=== PATIENT | female | born 1985 | race Caucasian/White ===

== ENCOUNTER 2020-10-04 11:15 | Outpatient (REF) | payer OTHER, SELFPAY ==
[2020-10-05 09:20] LABS: CT PCR NOT DETECTED (Not Detect.); NG PCR NOT DETECTED (Not Detect.)
== END 2020-10-04 11:16 | disposition home or self-care (01) ==
LOC: HO.LAB 11:15
PROVIDERS: PCP Physician Assistant; Visit Provider Obstetrics & Gynecology
DX: N91.2 Amenorrhea, unspecified (principal)
CPT/HCPCS: 81025; 87491; 87591; 99212

== ENCOUNTER 2020-10-16 12:09 | Outpatient (REF) | payer OTHER, SELFPAY ==
[2020-10-16 15:22] LABS: HCG Quantitative < 2 mIU/mL
[2020-10-17 06:37] LABS: Prolactin 5.9 ng/mL
== END 2020-10-16 12:10 | disposition home or self-care (01) ==
LOC: HO.LAB 12:09
PROVIDERS: PCP Physician Assistant; Visit Provider Obstetrics & Gynecology
DX: N91.2 Amenorrhea, unspecified (principal)
CPT/HCPCS: 36415; 84146; 84443; 84702; Q3014

== ENCOUNTER → 2020-10-28 15:20 | Outpatient (BNVA) | payer OTHER, SELFPAY | PROVIDERS: PCP Physician Assistant; Visit Provider Obstetrics & Gynecology | DX: N91.2 Amenorrhea, unspecified (principal) | CPT/HCPCS: Q3014 ==

== ENCOUNTER 2020-12-25 10:38 | Outpatient (REF) | payer OTHER, SELFPAY ==
[2020-12-25 11:58] LABS: Estimated Average Glucose 85 mg/dL; Hemoglobin A1c % 4.6 %
[2020-12-25 12:33] LABS: TSH reflex Free T4 2.51 uIU/mL (0.32-4.0)
[2020-12-25 12:50] LABS: Alanine Aminotransferase 22 U/L (0-31); Albumin Level 4.3 g/dL (3.5-5.0); Alkaline Phosphatase 80 U/L (39-117); Anion Gap 12 (12-20); Aspartate Amino Transferase 25 U/L (5-31); Bilirubin Total 0.8 mg/dL (0.0-1.0); Blood Urea Nitrogen 12 mg/dL (9-16); Calcium 9.5 mg/dL (8.4-10.2); Carbon Dioxide 26 mmol/L (22-29); Chloride 106 mmol/L (96-108); Cholesterol 209 mg/dL; Estimated Glomerular Filt Rate > 60; Glucose Fasting 90 mg/dL (60-99); HDL Cholesterol 36 mg/dL; LDL Cholesterol Calculated 141 mg/dl; Potassium 4.5 mmol/L (3.3-5.1); Sodium 139 mmol/L (135-145); Total Protein 7.4 g/dL (6.5-8.0); Triglycerides 162 mg/dL
== END 2020-12-25 10:39 | disposition home or self-care (01) ==
LOC: HO.LAB 10:38
PROVIDERS: PCP Physician Assistant; Visit Provider Physician Assistant
DX: Z13.1 Encounter for screening for diabetes mellitus (principal); Z13.220 Encounter for screening for lipoid disorders; E03.9 Hypothyroidism, unspecified
CPT/HCPCS: 36415; 80053; 80061; 83036; 84443

== ENCOUNTER 2021-03-26 14:29 | Outpatient (REF) | payer OTHER, SELFPAY ==
--- NOTE | ~2021-03-26 | XR_ITS ---
EXAMINATION: XR CERVICAL SPINE CLINICAL INFORMATION: Cervical radiculopathy. COMPARISON: None TECHNIQUE: AP, lateral, open-mouth, and swimmer's views of the cervical spine. FINDINGS: Reversal of the normal cervical lordosis, which may be positional or related to muscular spasm. No acute fracture or subluxation. No loss of vertebral body or intervertebral disc height. No lytic or blastic osseous lesion. Normal atlantoaxial alignment. Unremarkable prevertebral soft tissues. XR/XR cervical spine 3V IMPRESSION: Reversal of the normal cervical lordosis, which may be positional or related to muscular spasm.
== END 2021-03-26 14:30 | disposition home or self-care (01) ==
LOC: HO.XRAY 14:29
PROVIDERS: PCP Physician Assistant; Visit Provider Physician Assistant
DX: M54.12 Radiculopathy, cervical region (principal)
CPT/HCPCS: 72040

== ENCOUNTER 2021-04-09 09:45 | Outpatient (REF) | payer OTHER, SELFPAY ==
--- NOTE | 2021-04-09 09:48 | EMG_ITS ---
This is a 35-year-old previously healthy woman, who works at [employer] using her hands for several years, experienced left wrist pain and more recently pins and needles and tingling in all the fingers intermittently. She uses a brace. She is on no medications. PHYSICAL EXAMINATION: On examination, she is alert and oriented with normal intellectual functions. Cranial nerves II through XII are normal. Muscle tone and strength are normal in all 4 extremities. No Tinel or Phalen sign. IMPRESSION: Rule out carpal tunnel syndrome. Nerve conduction EMG study: Normal electrodiagnostic study of the left upper extremity except for borderline slowing in the ulnar nerve across the elbow suggestive of very early ulnar nerve entrapment. No evidence of carpal tunnel syndrome. Normal EMG of the left C5-T1 innervated muscles. MD CHELA Palacios/LIA / [id number]
== END 2021-04-09 09:46 | disposition home or self-care (01) ==
LOC: HO.NEURO 09:45
PROVIDERS: PCP Physician Assistant; Visit Provider Physician Assistant
DX: R20.2 Paresthesia of skin (principal)
CPT/HCPCS: 95885; 95910

== ENCOUNTER 2021-04-09 16:58 | Outpatient (REF) | payer OTHER, SELFPAY ==
--- NOTE | ~2021-04-09 | MR_ITS ---
EXAMINATION: MR CERVICAL SPINE WITHOUT CONTRAST CLINICAL INFORMATION: Cervical radiculopathy. Left arm pain and numbness. Left finger numbness and weakness. COMPARISON: Cervical spine radiographs dated 03/26/2021. TECHNIQUE: MRI of the cervical spine was obtained using routine sequences without contrast. FINDINGS: VERTEBRAL BODIES AND PARASPINAL SOFT TISSUES: Straightening of the normal cervical lordosis, which may be positional or related to muscle spasm. No acute fracture or subluxation. No loss of vertebral body height. Mild loss of intervertebral disc height with disc desiccation at T1-T2. No marrow edema to suggest acute osseous injury. Probable vertebral body hemangioma within T1. The visualized paraspinal soft tissues are unremarkable. No abnormal signal within the visualized cord. CERVICOMEDULLARY JUNCTION AND VISUALIZED POSTERIOR FOSSA: Unremarkable. SPINAL LEVELS: C2-C3: No significant disc bulge. Bilateral facet arthropathy with mild left neural foraminal stenosis. C3-C4: Shallow disc bulge, which partially effaces the ventral thecal sac. Bilateral facet arthropathy and uncinate spurring with moderate left and mild right neural foraminal stenosis. C4-C5: Shallow disc bulge with bilateral facet arthropathy and uncinate spurring causing moderate bilateral neural foraminal stenosis. C5-C6: Broad-based disc bulge with a shallow superimposed left paracentral disc protrusion, which nearly completely effaces the ventral thecal sac. Bilateral facet arthropathy with left-sided uncinate spurring causing moderate left neural foraminal stenosis. Right-sided perineural cyst measuring up to 0.6 cm. C6-C7: Shallow disc bulge with bilateral facet arthropathy and left-sided uncinate spurring causing moderate left and mild right neural foraminal stenosis. C7-T1: No significant disc bulge. Left-sided facet arthropathy and uncinate spurring causing [id number] left neural foraminal stenosis. T1-T2: Broad-based disc bulge with a left paracentral disc osteophyte complex which completely effaces the ventral thecal sac and has mass effect on the adjacent cord. No abnormal cord signal. Bilateral facet arthropathy and uncinate spurring with mild to moderate left neural foraminal stenosis. MR/MR cervical spine wo con IMPRESSION: 1. Degenerative disc disease at T1-T2 with a broad-based disc bulge and left paracentral disc osteophyte complex, which completely effaces the ventral thecal sac and has mass effect on the adjacent cord. No abnormal cord signal. Bilateral facet arthropathy and uncinate spurring with mild to moderate left neural foraminal stenosis. 2. Broad-based disc bulge at C5-C6 with a superimposed left paracentral disc protrusion, which completely effaces the ventral thecal sac. Bilateral facet arthropathy and left-sided uncinate spurring causing moderate left neural foraminal stenosis. Right-sided perineural cyst measuring 0.6 cm. 3. Additional multilevel disc bulges with bilateral facet arthropathy and uncinate spurring causing bilateral neural foraminal stenosis as above. 4. Straightening of the normal cervical lordosis, which may be positional or related to muscular spasm.
== END 2021-04-09 16:59 | disposition home or self-care (01) ==
LOC: HO.MRI 16:58
PROVIDERS: PCP Physician Assistant; Visit Provider Physician Assistant
DX: M54.12 Radiculopathy, cervical region (principal)
CPT/HCPCS: 72141

== ENCOUNTER → 2021-10-24 10:11 | Outpatient (BNVA) | payer OTHER, SELFPAY | PROVIDERS: PCP Physician Assistant; Visit Provider Nurse Practitioner Family | DX: M54.2 Cervicalgia (principal); M62.838 Other muscle spasm | CPT/HCPCS: 99202 ==

== ENCOUNTER 2021-10-28 10:00 | Outpatient (RCR) | payer OTHER, SELFPAY ==
--- NOTE | 2021-09-24 10:47 | MHC.PT.EP ---
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 She has had L-sided neck pain for about one year that comes and goes but recently worsened the lsat month. It is worse with sleeping, cervical rotation/movement, reaching with L shoulder, and lifting. MRI shows several L-sided disc bulges (see report). Examination shows decreased cervical AROM (especially L rotation), decreased L shoulder/elbow strength, decreased L shoulder AROM, increased pain and impaired postural awareness. S/s consistent with cervical derangement and postural syndrome. Recommend PT 2x/week for 5 weeks to address impairments, implement HEP, and optimize functional mobility. Frequency and Duration: The patient will be seen 2x/week for 5 weeks Short Term Goals: 3 week 1. Initiate HEP 2. Improve L cervical rotation to 60 to faciliate driving Group Counselor Goals: 5 weeks 1. Compliant with HEP and I with self management of sx 2. Pt will be able to sleep through the night with neck pain < 3/10 3. Pt will be able to lift > 10# with proper mechanics and pain < 3/10 Treatment Plan: Modalities to reduce pain, spasms and effusion. Manual therapy to restore motion and function. Therapeutic exercise to improve strength and flexibility. Neuromuscular re-education for posture and balance. Therapeutic activities to return to functional activities of daily living. Electronically signed by: Ai Lugo PT Please sign and return to therapist. Thank you for your referral.
--- NOTE | 2021-10-28 15:18 | MHC.PT.DC ---
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 Pt requesting d/c today as she is feeling much better. Electronically signed by: Ai Lugo PT Please sign and return to therapist. Thank you for your referral.
== END 2021-10-28 15:19 | disposition home or self-care (01) ==
LOC: HO.PT 10:00
PROVIDERS: PCP Physician Assistant; Visit Provider Nurse Practitioner Family
DX: M50.021 Cervical disc disorder at C4-C5 level with myelopathy (principal)
CPT/HCPCS: 97110; 97140; 97161

== ENCOUNTER 2022-09-02 11:37 | Outpatient (REF) | payer OTHER, SELFPAY ==
[2022-09-02 11:55] LABS: MANUAL DIFF FLAG NO
[2022-09-02 13:04] LABS: Basophils Absolute Auto 0.1 X10*3/uL (0.0-0.2); Basophils Percent Auto 0.6 % (0-2); Eosinophils Absolute Auto 0.3 X10*3/uL (0.0-0.4); Eosinophils Percent Auto 2.7 % (0-4); Hematocrit 43.1 % (37.0-47.0); Hemoglobin 14.4 g/dl (12.0-16.0); Imm Gran Abs Auto 0.04 X10*3/uL (0.00-0.03); Imm Gran Pct Auto 0.4 % (0.0-0.4); Lymphocytes Absolute Auto 2.8 X10*3/uL (1.2-4.9); Lymphocytes Percent Auto 27.4 % (20-40); Mean Corpuscular HGB Conc 33.4 g/dl (31.0-35.0); Mean Corpuscular Hemoglobin 30.6 pg (27.0-33.0); Mean Corpuscular Volume 91.7 fL (80.0-98.0); Mean Platelet Volume 10.3 fL (9.4-12.3); Monocytes Absolute Auto 0.6 X10*3/uL (0.1-1.2); Monocytes Percent Auto 5.6 % (2-11); Neutrophils Absolute Auto 6.5 x10*3/uL (2.0-8.3); Neutrophils Percent Auto 63.3 % (45-73); Platelet Count 341 X10*3/uL (160-400); Red Cell Distribution Width 12.4 % (11.0-16.0); White Blood Count 10.2 X10*3/uL (4.8-10.8)
[2022-09-02 13:45] LABS: Alanine Aminotransferase 19 U/L (0-31); Albumin Level 4.1 g/dL (3.5-5.0); Alkaline Phosphatase 75 U/L (39-117); Anion Gap 16 (12-20); Aspartate Amino Transferase 19 U/L (5-31); Bilirubin Total 0.4 mg/dL (0.0-1.0); Blood Urea Nitrogen 9 mg/dL (9-16); Calcium 9.2 mg/dL (8.4-10.2); Carbon Dioxide 25 mmol/L (22-29); Chloride 106 mmol/L (96-108); Cholesterol 196 mg/dL; Estimated Glomerular Filt Rate > 60; Glucose Fasting 81 mg/dL (60-99); HDL Cholesterol 36 mg/dL; LDL Cholesterol Calculated 127 mg/dl; Potassium 4.5 mmol/L (3.3-5.1); Sodium 142 mmol/L (135-145); Triglycerides 165 mg/dL
[2022-09-02 14:05] LABS: Folate 10.8 ng/mL (> or = 4.0); Vitamin B12 307 pg/mL (200-900); Vitamin D 25-OH Total 15.8 ng/mL (>30)
[2022-09-02 14:41] LABS: Free T4 (Free Thyroxine) 0.76 ng/dL (0.71-1.85)
== END 2022-09-02 11:38 | disposition home or self-care (01) ==
LOC: HO.LAB 11:37
PROVIDERS: PCP Physician Assistant; Visit Provider Nurse Practitioner Family
DX: Z00.00 Encounter for general adult medical examination without abnormal findings (principal)
CPT/HCPCS: 36415; 80053; 80061; 82306; 82607; 82746; 84439; 84443; 85025

== ENCOUNTER → 2022-12-28 17:20 | Outpatient (RCR) | payer OTHER, SELFPAY | END | disposition home or self-care (01) | LOC: HO.PTMS 12-25 10:18 | PROVIDERS: Absent Provider Psychiatry & Neurology Psychiatry; PCP Physician Assistant; Visit Provider Psychiatry & Neurology Psychiatry | DX: F32.A Depression, unspecified (principal) ==

== ENCOUNTER 2023-06-03 13:50 | Outpatient (AMB) | payer OTHER, SELFPAY ==
--- NOTE | 2023-06-03 14:11 | A.OFFVIS_ITS ---
Intake Vital Signs 06/03/23 14:12 Height 5 ft 7 in Weight 285 lb BMI 44.6 BP 110/76 Intake Visit Reasons: AUB Private Banker Required: No Information Interpreted: non-clinical & clinical Shearer Screen Measurer And Trimmer: Shearer Screen Measurer And Trimmer Present (Claudia Barrera CARMEN) Accompanied by: Self / Same As Patient Allergies No Known Allergies Allergy (Verified 06/03/23 14:19) bee sting Allergy (Severe, Uncoded 06/03/23 14:19) Anaphylaxis HPI HPI Comments History of Present Illness Details Presenting complaining of irregular menstrual cycles associated passage of blood clots and pelvic cramping. Last co testing was in 08/07 was negative. [facility] Medical History Left ovarian cyst Hypothyroid Surgical History History of removal of ovarian cyst Family History Mother Mental health disorder Sister Mental health disorder Social History Household Members: Spouse Housing: Apartment Alcohol intake: current Alcohol intake frequency: holidays/special occasions only Patient Tobacco Use Status: Never used Tobacco e-Cigarette/Vaping Use: Never Used Second Hand Smoke Exposure: No Substance Use Type: Marijuana service: No Current occupational status: employed Gender identity: Female Cognitive needs: No Hearing needs: No Vision needs: No Female Reproductive History Menstrual Age of Menarche: 16 Review of Systems Const All systems reviewed & are unremarkable except as noted in HPI and below Card Reports as per HPI Resp Reports as per HPI GI Reports as per HPI and Reports no additional complaints Reports as per HPI Physical Exam Vital Signs: Last Vital Signs BP 110/76 06/03/23 14:12 BMI result Body Mass Index 44.6 Const General: cooperative, healthy appearing and comfortable Chest Chest palpation & inspection: normal inspection of the chest and normal palpation of entire chest wall Breast/axilla inspection: normal inspection of the breasts and normal inspection of the axillae Breast/axilla palpation: normal palpation of the breasts, normal palpation of the axillae and no axillary lymphadenopathy Resp Effort & Inspection: normal respiratory effort Auscultation: clear to auscultation bilaterally Percussion: percussion normal Cardio Palpation: normal PMI Rate: regular rate Rhythm: regular rhythm Heart sounds: no murmurs and no rubs Peripheral pulses: Peripheral pulses 2+ throughout GI Inspection: Yes normal to inspection Palpation (GI): Soft to palpation, nontender, no guarding, not rigid and No hepatosplenomegaly present Percussion: Yes normal to percussion Auscultation: normal bowel sounds Rectal Exam - Female: deferred General: Yes bladder normal to palpation External Female Exam: No lesion Speculum Exam - Vagina: normal appearance of the vagina, normal palpation, normal vaginal discharge and not erythematous Speculum Exam - Cervix: normal appearance of the cervix and normal palpation Bimanual exam- vagina & uterus: normal bimanual exam, normal palpation, uterine size normal, bladder normal to palpation, consistency normal and normal palpation Bimanual Exam- Adnexa, other: normal adnexae, no masses and no tenderness Results AMB Test Urine AMB Test Urine Negative Last Edit by Claudia Barrera CMA on 14:38 Assessment & Plan Assessment & Plan (1) Abnormal uterine bleeding (AUB): Code(s): N93.9 - Abnormal uterine and vaginal bleeding, unspecified Plan: Will start patient on Prometrium 200 mg p.o. q.d. to be started today and then cyclically day 15 to 24 cyclically, Urine test done in the office was negative Co testing not indicated this year, GC and chlamydia taken CBC, TSH, prolactin, HCG, and pelvic ultrasound ordered. Discussed with the patient the different causes of abnormal bleeding including thyroid disorders, uterine and ovarian pathology, endometrial hyperplasia, carcinoma and other potential causes. Discussed with the patient the work up including CBC (to r/o anemia), TSH, pelvic Ultrasound, endometrial biopsy to r/o endometrial pathology. All questions answered and the patient verbalized understanding. Instructed the patient to schedule an appointment for an endometrial biopsy in 2 weeks. Orders: Orders US pelvic and transvaginal Today N93.9 - Abnormal uterine and vaginal bleeding, unspecified Complete Blood Count no Diff Today N93.9 - Abnormal uterine and vaginal bleeding, unspecified TSH reflex Free T4 Today N93.9 - Abnormal uterine and vaginal bleeding, unspecified Prolactin Today N93.9 - Abnormal uterine and vaginal bleeding, unspecified HCG Quantitative Today N93.9 - Abnormal uterine and vaginal bleeding, unsp ecified CT NG by PCR Today N93.9 - Abnormal uterine and vaginal bleeding, unspecified AMB HCG Urine Test Today N93.9 - Abnormal uterine and vaginal bleeding, unspecified Medications: New progesterone micronized (Prometrium) Take the pill 1 tablet a day to be started today for 10 days than cyclically every month from day 15-24 day 1 being the 1st day of next menstrual cycle 200 mg PO BEDTIME 10 days 30 caps 0RF Coding Level of Care Code Est Pt Level 3 (93052) Diagnoses Abnormal uterine bleeding (AUB) N93.9
[2023-06-03 14:12] VITALS: BP 110/76; BMI 44.6
== END 2023-06-03 14:48 | disposition home or self-care (01) ==
PROVIDERS: PCP Physician Assistant; Visit Provider Obstetrics & Gynecology
DX: N93.9 Abnormal uterine and vaginal bleeding, unspecified (principal)
CPT/HCPCS: 99213

== ENCOUNTER 2023-06-03 13:50 | Outpatient (REF) | payer OTHER, SELFPAY ==
[2023-06-03 15:27] LABS: Mean Corpuscular HGB Conc 34.3 g/dl (31.0-35.0); Mean Corpuscular Hemoglobin 30.4 pg (27.0-33.0); Mean Corpuscular Volume 88.6 fL (80.0-98.0); Mean Platelet Volume 10.2 fL (9.4-12.3); Platelet Count 341 X10*3/uL (160-400); Red Blood Count 3.95 X10*6/uL (4.20-5.50); Red Cell Distribution Width 12.4 % (11.0-16.0); White Blood Count 9.6 X10*3/uL (4.8-10.8)
[2023-06-03 16:51] LABS: HCG Quantitative < 2 mIU/mL; TSH reflex Free T4 4.29 uIU/mL (0.32-4.0)
[2023-06-03 17:22] LABS: Free T4 (Free Thyroxine) 0.84 ng/dL (0.71-1.85)
[2023-06-03 17:49] LABS: CT PCR NOT DETECTED (Not Detect.); NG PCR NOT DETECTED (Not Detect.)
[2023-06-04 10:04] LABS: Prolactin 6.7 ng/mL
== END 2023-06-03 13:51 | disposition home or self-care (01) ==
LOC: HO.LAB 13:50
PROVIDERS: PCP Physician Assistant; Visit Provider Obstetrics & Gynecology
DX: N93.9 Abnormal uterine and vaginal bleeding, unspecified (principal)
CPT/HCPCS: 0353U; 36415; 81025; 84146; 84439; 84443; 84702; 85027; 99212

== ENCOUNTER 2023-07-07 11:07 | Outpatient (REF) | payer OTHER, SELFPAY ==
--- NOTE | ~2023-07-07 | US_ITS ---
EXAMINATION: US PELVIS AND TRANSVAGINAL CLINICAL INFORMATION: Abnormal bleeding, last menstrual period June 14, 2023. Left oophorectomy. COMPARISON: Pelvic ultrasound of 08/16/2019. TECHNIQUE: Ultrasound of the pelvis is performed using both transabdominal and transvaginal transducers along with Doppler. Transvaginal imaging is performed due to inadequate visualization transabdominally. FINDINGS: Uterus: The uterus is heterogeneous and measures 9.4 x 4.7 x 5.0 cm. No discrete fibroids. The double wall endometrial thickness is 7 mm. Right ovary measures 3.7 x 2.9 x 3.0 cm, volume 16.9 mL. Right ovarian 3.8 x 3.2 x 3.0 cm simple cyst. Left ovary is surgically absent. Small amount of free fluid in the pelvis. US/US pelvic and transvaginal IMPRESSION: 1. Heterogeneous uterus. No discrete fibroids. 2. Endometrial thickness is 7 mm. 3. Right ovarian 3.8 cm simple cyst. 4. Left ovary surgically absent. 5. Small amount of free fluid in the pelvis. 6. Recommend follow-up ultrasound in 6-8 weeks.
== END 2023-07-07 11:08 | disposition home or self-care (01) ==
LOC: HO.US 11:07
PROVIDERS: PCP Physician Assistant; Visit Provider Obstetrics & Gynecology
DX: N93.9 Abnormal uterine and vaginal bleeding, unspecified (principal)
CPT/HCPCS: 76830; 76856

== ENCOUNTER 2023-08-04 10:40 | Outpatient (REF) | payer OTHER, SELFPAY | END 2023-08-04 10:41 | disposition home or self-care (01) | LOC: HO.LNP 10:40 | PROVIDERS: PCP Physician Assistant; Visit Provider Obstetrics & Gynecology | DX: N93.9 Abnormal uterine and vaginal bleeding, unspecified (principal); Z32.02 Encounter for pregnancy test, result negative | CPT/HCPCS: 58100; 81025; 88305 ==

== ENCOUNTER 2023-08-04 10:40 | Outpatient (AMB) | payer OTHER, SELFPAY ==
--- NOTE | 2023-08-04 11:23 | A.OFFVIS_ITS ---
Intake Vital Signs 08/04/23 11:32 Height 5 ft 1 in Weight 284 lb 6.341 oz BMI 53.7 BP 118/72 Intake Visit Reasons: Ultrasound Follow up Sugar Mixer Required: No Information Interpreted: non-clinical & clinical Inseam Trimming Machine Operator: Inseam Trimming Machine Operator Present (Claudia MORALES) Accompanied by: Spouse Allergies No Known Allergies Allergy (Verified 08/04/23 11:33) bee sting Allergy (Severe, Uncoded 08/04/23 11:33) Anaphylaxis Is last menstrual period known: Yes Last menstrual period: 07/08/23 HPI HPI Comments History of Present Illness Details Presenting for EMB PFSH Medical History Left ovarian cyst Hypothyroid Surgical History History of removal of ovarian cyst Family History Mother Mental health disorder Sister Mental health disorder Social History Household Members: Spouse Housing: Apartment Alcohol intake: current Alcohol intake frequency: holidays/special occasions only Patient Tobacco Use Status: Never used Tobacco e-Cigarette/Vaping Use: Never Used Second Hand Smoke Exposure: No Substance Use Type: Marijuana service: No Current occupational status: employed Gender identity: Female Cognitive needs: No Hearing needs: No Vision needs: No Female Reproductive History Menstrual Age of Menarche: 16 Date of last menstrual period: 07/08/23 Office Procedures Endometrial Biopsy Details: The patient was counseled regarding the indication and benefits of endometrial sampling to rule out endometrial pathology including not limited to endometrial hyperplasia or endometrial cancer and others; The alternatives (Either do nothing vs. hysteroscopy D&C) & the risks were discussed with the patient including but not limited: pain, uterine perforation, bleeding, infection, possible injury to bladder, bowel, ureter, possible need for blood transfusion with all its possible risks. The patient verbalized understanding all questions answered and signed consent. Urine test done in the office was negative The patient was placed into the dorsal lithotomy position; a speculum was inserted in the vagina. Using aseptic technique for the procedure, the cervix was cleansed with Betadine. The anterior lip of the cervix was grasped with a single tooth tenaculum. The uterus was sounded to 9 cm with a 4 mm Pipelle was used. Tissues samples were obtained and placed in formalin, in a patient labeled container and sent to the pathology department. At the end of the procedure, there was minimal bleeding noted The patient tolerated the procedure well and was discharged in good condition with the following instructions: Nothing in the vagina until the bleeding stops. No sex until the bleeding stops, to call if any of the following occurs: fever (>100.4), flu-like symptoms, abdominal pain, heavy bleeding, four smelling vagi nal discharge. The patient was instructed to schedule a Follow up appointment in 2 weeks to discuss pathology results of the biopsy and treatment options. This note was generated with a voice recognition program. Some errors may have been overlooked during the review of this note. Sometimes these errors may affect the content or meaning of a given sentence. [id number] Biopsy Assessment & Plan Assessment & Plan (1) Abnormal uterine bleeding (AUB): Code(s): N93.9 - Abnormal uterine and vaginal bleeding, unspecified Plan: EMB done, see procedure note Orders: Orders AMB Endometrial Biopsy Today N93.9 - Abnormal uterine and vaginal bleeding, unspecified Coding Level of Care Code Procedure Only Diagnoses Abnormal uterine bleeding (AUB) N93.9 CPT Codes Endometrial Biopsy - CPT: 79760-[id number] Biopsy ([id number])
[2023-08-04 11:32] VITALS: BP 118/72; BMI 53.7
== END 2023-08-04 11:58 | disposition home or self-care (01) ==
PROVIDERS: PCP Physician Assistant; Visit Provider Obstetrics & Gynecology
DX: N93.9 Abnormal uterine and vaginal bleeding, unspecified (principal); Z32.02 Encounter for pregnancy test, result negative
CPT/HCPCS: 58100

== ENCOUNTER 2023-09-15 08:59 | Outpatient (AMB) | payer OTHER, SELFPAY ==
--- NOTE | 2023-09-15 09:04 | MHC.OFFVIS ---
Intake Vital Signs 09/15/23 09:07 Height 5 ft 7 in Weight 284 lb 6.341 oz BMI 44.5 BP 118/76 Intake Visit Reasons: EMB Results Electric Locomotive Crane Operator Required: No Information Interpreted: non-clinical & clinical Case Management Social Worker: Case Management Social Worker Present Accompanied by: Spouse Allergies No Known Allergies Allergy (Verified 09/15/23 09:07) bee sting Allergy (Severe, Uncoded 09/15/23 09:07) Anaphylaxis Is last menstrual period known: Yes Last menstrual period: 09/02/23 Post menopausal: No Patient : No Do you need a note to return to daycare/school/sports/work: Yes (for surgery on wednesday) HPI HPI Comments History of Present Illness Details The patient is presenting after endometrial biopsy. The patient has no complaints, no vaginal bleeding, no feverishness chills or abdominal pain. 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 executive secretary social welfare and endometrium, and fragments of benign endometrial polyps with stromal collapse and glandular breakdown and focal features suggesting chronic endometritis (likely due to polyp); no atypia or carcinoma PFSH Medical History Left ovarian cyst Hypothyroid Surgical History History of removal of ovarian cyst Family History Mother Mental health disorder Sister Mental health disorder Social History Household Members: Spouse Housing: Apartment Alcohol intake: current Alcohol intake frequency: holidays/special occasions only Patient Tobacco Use Status: Never used Tobacco e-Cigarette/Vaping Use: Never Used Second Hand Smoke Exposure: No Substance Use Type: Marijuana service: No Current occupational status: employed Gender identity: Female Cognitive needs: No Hearing needs: No Vision needs: No Female Reproductive History Menstrual Age of Menarche: 16 Date of last menstrual period: 09/02/23 Total pregnancies: 2 Full term: 2 Review of Systems Card Reports as per HPI and Reports no additional complaints Resp Reports as per HPI and Reports no additional complaints GI Reports as per HPI and Reports no additional complaints Reports as per HPI Physical Exam Vital Signs: Last Vital Signs BP 118/76 09/15/23 09:07 BMI result Body Mass Index 44.5 Const General: cooperative, healthy appearing and comfortable Chest Chest palpation & inspection: normal inspection of the chest and normal palpation of entire chest wall Breast/axilla inspection: normal inspection of the breasts and normal inspection of the axillae Breast/axilla palpation: normal palpation of the breasts, normal palpation of the axillae and no axillary lymphadenopathy Resp Effort & Inspection: normal respiratory effort Auscultation: clear to auscultation bilaterally Percussion: percussion normal Cardio Palpation: normal PMI Rate: regular rate Rhythm: regular rhythm Heart sounds: no murmurs and no rubs Peripheral pulses: Peripheral pulses 2+ throughout GI Inspection: Yes normal to inspection Palpation (GI): Soft to palpation, nontender, no guarding, not rigid and No hepatosplenomegaly present Percussion: Yes normal to percussion Auscultation: normal bowel sounds Rectal Exam - Female: deferred Assessment & Plan Assessment & Plan (1) Abnormal uterine bleeding (AUB): Comment: Endometrial polyp on EMB pathology Code(s): N93.9 - Abnormal uterine and vaginal bleeding, unspecified Plan: Discussed with the patient the results of the pathology showing fragments of benign endometrial polyp, recommended hysteroscopy D&C possible polypectomy/myomectomy. Discussed with the patient the procedure , all benefits and risks including but not limited to inability to complete the procedure , insufficient endometrial tissue for a complete evaluation of the endometrial cavity , bleeding, infection, possible need for blood transfusion with all its risk ( HIV,syphilis, Hepatitis, anaphylaxis shock, others..), injury to bladder, rectum, possible need for laparoscopy/laparotomy or hysterectomy. The patient verbalized understanding and signed the consent. Instructions given the patient to schedule a 2 week postoperative appointment Coding Level of Care Code Est Pt Level 3 (19351) Diagnoses Abnormal uterine bleeding (AUB) N93.9
[2023-09-15 09:07] VITALS: BP 118/76; BMI 44.5
== END 2023-09-15 09:31 | disposition home or self-care (01) ==
LOC: HO.HWS 09:00
PROVIDERS: PCP Physician Assistant; Visit Provider Obstetrics & Gynecology
DX: N93.9 Abnormal uterine and vaginal bleeding, unspecified (principal)
CPT/HCPCS: 99213

== ENCOUNTER → 2023-09-15 08:59 | Outpatient (BNVA) | payer OTHER, SELFPAY | PROVIDERS: PCP Physician Assistant; Visit Provider Obstetrics & Gynecology | DX: N93.9 Abnormal uterine and vaginal bleeding, unspecified (principal) | CPT/HCPCS: 99212 ==

== ENCOUNTER 2023-09-17 10:26 | Day surgery (SDC) | payer OTHER, SELFPAY ==
--- NOTE | 2023-09-16 09:01 | HO.ANESPROP2 ---
Documented by User: Carlee Anderson NP 09/16/23 09:01 HPI - Anesthesia Eval Consult details Narrative: 37yo F for D&C Hysteroscopy,possible myomectomy,possible polypectomy, PMFSH Active Problems Active Problems: All Active Problems (Updated 09/15/23 @ 09:17 by Ede Rivers MD) Abnormal uterine bleeding (AUB) (Acute) Low vitamin D level (Acute) Muscle spasms of neck (Acute) Cervicalgia (Acute) Anaphylactic reaction (Acute) Cervical disc disorder at C4-C5 level with myelopathy (Acute) LINUS (generalized anxiety disorder) (Acute) Cervical radiculopathy (Acute) Migraines (Acute) Left carpal tunnel syndrome (Acute) Left hand paresthesia (Acute) Annual physical exam (Acute) Lumbar spine pain (Acute) Screening for diabetes mellitus (DM) (Acute) Screening for hypercholesterolemia (Acute) Obese (Acute) Hypothyroidism (Acute) MDD (major depressive disorder), recurrent episode, moderate (Acute) Amenorrhea (Acute) Past Medical History Medical History (Updated 09/17/23 @ 10:54 by Jerri Emerson RN) Cervicalgia LINUS (generalized anxiety disorder) Hypothyroidism MDD (major depressive disorder), recurrent episode, moderate Left ovarian cyst Hypothyroid Family History Family History Mother Mental health disorder Sister Mental health disorder Surgical History Surgical History (Updated 09/17/23 @ 10:54 by Jerri Emerson RN) History of dental surgery History of removal of ovarian cyst Social History Social History Household Members: Spouse Housing: Apartment Alcohol intake: current Alcohol intake frequency: holidays/special occasions only Patient Tobacco Use Status: Former Tobacco user e-Cigarette/Vaping Use: Never Used Second Hand Smoke Exposure: No Substance Use Type: Marijuana service: No Current occupational status: employed Gender identity: Female Cognitive needs: No Hearing needs: No Vision needs: No Meds Allergies Allergy/AdvReac Type Severity Reaction Status Date / Time caffeine AdvReac Nausea and Verified 09/17/23 10:55 Vomiting bee sting Allergy Severe Anaphylaxis Uncoded 09/15/23 09:07 Assessment and Plan Assessment Anesthesia Assessment: Chart Reviewed Documented by User: Angel Guy MD 09/17/23 12:35 PMFSH Past Medical History Medical History (Updated 09/17/23 @ 10:54 by Jerri Emerson RN) Cervicalgia LINUS (generalized anxiety disorder) Hypothyroidism MDD (major depressive disorder), recurrent episode, moderate Left ovarian cyst Hypothyroid Patient : No Family History Family History Mother Mental health disorder Sister Mental health disorder Family history of problems with anesthesia: No Surgical History Surgical History (Updated 09/17/23 @ 10:54 by Jerri Emerson RN) History of dental surgery History of removal of ovarian cyst History of Problems with Anesthesia: Yes (PONV) Social History Social History Household Members: Spouse Housing: Apartment Alcohol intake: current Alcohol intake frequency: holidays/special occasions only Patient Tobacco Use Status: Former Tobacco user e-Cigarette/Vaping Use: Never Used Second Hand Smoke Exposure: No Substance Use Type: Marijuana service: No Current occupational status: employed Gender identity: Female Cognitive needs: No Hearing needs: No Vision needs: No Meds Allergies Allergy/AdvReac Type Severity Reaction Status Date / Time caffeine AdvReac Nausea and Verified 09/17/23 10:55 Vomiting bee sting Allergy Severe Anaphylaxis Uncoded 09/15/23 09:07 Exam Airway Mallampati Class: II TM Dist: <=3cm Neck ROM: Full Heart: ok Lungs: ok Assessment and Plan Assessment Anesthesia Assessment: Anesthesia Plan Discussed Final Anesthetic Review Family History of Problems with Anesthesia: No History of Problems with Anesthesia: Yes (PONV) NPO: Yes ASA Class: III Final Preanesthetic Review: No Changes in Pt Med Stat, Meds/Allgs Chart Reviewed, Consent Obtained/Reviewed and Anes Risks/Benef Reviewed Patient Risk: Intermediate Procedure Risk: Low Anesthetic Plan Anesthetic Plan: GA and Agree w/ Assess. and Plan Disposition: Standard PACU
[2023-09-17] VITALS (7 sets, daily range): BP systolic 108–128; BP diastolic 66–95; PULSE 60–78; RESP 14–20; TEMP 36.1–36.6; O2SAT 91–99; BMI 44.6
[2023-09-17 11:01] LABS: UPreg QC Valid YES; Urine Pregnancy NEGATIVE (NEGATIVE)
[2023-09-17] MEDS: Lactated Ringers 1,000 ML 100 ML IVCONT (11:20)
--- NOTE | 2023-09-17 12:04 | MHC.SHP ---
Pre-Procedural Eval Section A - 24 Hr Update-Section A only Date of Service: 09/17/23 The patient is an INPATIENT: No Changes since office visit: No Cold of Flu in the past 2 weeks, No New Medical Problems, No Changes in Medication and No Patient answered all questions The patient has been examined within 24 hours of the surgical procedure. The History & Physical has been completed within 30 days and I have reviewed it.: Yes Section B - Complete if H&P > 30 days Chief Complaint: Abnormal uterine and vaginal bleeding, Allergies: Allergies Allergy/AdvReac Type Severity Reaction Status Date / Time caffeine AdvReac Nausea and Verified 09/17/23 10:55 Vomiting bee sting Allergy Severe Anaphylaxis Uncoded 09/15/23 09:07 Plan Diagnosis/Plan: Unchanged I have reviewed the history and physical and performed a pertinent physical examination on my patient. No changes have occurred unless specified. Time Spent With Patient Time: Total time managing care of this patient today ____ minutes.
--- NOTE | 2023-09-17 13:05 | PM.OP ---
Brief Operative Note Date of Service: 09/17/23 Pre-op diagnosis: Abnormal uterine bleeding, polyp on EMB Post-op diagnosis: same (Normal endometrial cavity) Procedure: Hysteroscopy D&C Surgeon: Ede Rivers MD Anesthesia: GLMA Was an Production Cell Leader used for this Procedure?: No Estimated blood loss (mL): 0 Pathology: other (Endometrial Scrapping.) Condition: stable Disposition: PACU
--- NOTE | 2023-09-17 13:06 | W.PM.OPN ---
Operative Note Operative Note Date of Service: 09/17/23 Narrative: Preop Diagnosis: Abnormal uterine bleeding, polyp on EMB Operation: Diagnostic Hysteroscopy, Dilataion & Curettage Post Op Diagnosis: Normal endometrial and endocervical cavity, no evidence of pathology QBL: Minimal Anesthesia: GLMA Surgeon: Ede Rivers MD Production Machine Computer Operator: None Complication: None Pathology: Endometrial Scrapings Procedure: The patient was put in the dorsal lithotomy position, scrubbed, and draped in the usual manner. A sterile speculum was inserted in the patient's vagina. The anterior lip of the cervix was grasped with a single tooth tenaculum. The cervix was dilated up to 5 mm, then the scope was inserted in the patient's uterus. Inspection revealed normal endocervical & endometrial cavity with no evidence of pathology. The scope was taken out of the uterine cavity , then sharp curetting was carried on with no complications. At the end of the procedure, all instruments were taken out of the patient uterine and vaginal cavity. The single tooth tenaculum was removed and homeostasis was assured using pressure. The patient tolerated the procedure well and was transferred to the PACU in a stable condition.
== END 2023-09-17 14:44 | disposition home or self-care (01) ==
PROVIDERS: PCP Physician Assistant; Visit Provider Obstetrics & Gynecology
PROC: 0UDB8ZZ Extraction of Endometrium, Via Natural or Artificial Opening Endoscopic (ICD-10-PCS; CPT 58558; principal; 2023-09-17 13:30)
DX: N39.9 Disorder of urinary system, unspecified (principal); E03.9 Hypothyroidism, unspecified; F33.1 Major depressive disorder, recurrent, moderate; F41.1 Generalized anxiety disorder; Z98.890 Other specified postprocedural states; Z87.891 Personal history of nicotine dependence
CPT/HCPCS: 58558; 81025; 88305; J1885; J2405; J2704; J3010

== ENCOUNTER → 2023-09-17 10:26 | Outpatient (BNV) | payer OTHER, SELFPAY | PROVIDERS: PCP Physician Assistant; Visit Provider Obstetrics & Gynecology | DX: N93.9 Abnormal uterine and vaginal bleeding, unspecified (principal); N84.0 Polyp of corpus uteri | CPT/HCPCS: 58558 ==

== ENCOUNTER 2023-10-04 12:12 | Outpatient (AMB) | payer OTHER, SELFPAY ==
[2023-10-04 12:18] VITALS: BP 118/80; BMI 44.6
--- NOTE | 2023-10-04 12:18 | MHC.OFFVIS ---
Intake Vital Signs 10/04/23 12:18 Height 5 ft 7 in Weight 285 lb BMI 44.6 BP 118/80 Intake Visit Reasons: post op Allergies caffeine Adverse Reaction (Verified 09/17/23 10:55) Nausea and Vomiting bee sting Allergy (Severe, Uncoded 09/15/23 09:07) Anaphylaxis HPI HPI Comments History of Present Illness Details The patient is presenting post hysteroscopy D&C no complaints minimal vaginal bleeding no feverishness chills or abdominal pain. The pathology showed the following: Endometrium, curettage: Benign disordered proliferative endometrium and fragments of endometrial polyps with focal gland crowding, and metaplastic and reactive changes; no atypia or carcinoma (see comment). Comment: Follow-up recommended in 4-6 months [facility] Medical History Cervicalgia LINUS (generalized anxiety disorder) Hypothyroidism MDD (major depressive disorder), recurrent episode, moderate Left ovarian cyst Hypothyroid Surgical History History of dental surgery History of removal of ovarian cyst Family History Mother Mental health disorder Sister Mental health disorder Social History Household Members: Spouse Housing: Apartment Alcohol intake: current Alcohol intake frequency: holidays/special occasions only Patient Tobacco Use Status: Former Tobacco user e-Cigarette/Vaping Use: Never Used Second Hand Smoke Exposure: No Substance Use Type: Marijuana service: No Current occupational status: employed Gender identity: Female Cognitive needs: No Hearing needs: No Vision needs: No Female Reproductive History Menstrual Age of Menarche: 16 Review of Systems Const All systems reviewed & are unremarkable except as noted in HPI and below Reports as per HPI and Reports no additional complaints GI Reports no additional complaints Reports no additional complaints Physical Exam Vital Signs: Last Vital Signs BP 118/80 10/04/23 12:18 BMI result Body Mass Index 44.6 Assessment & Plan Assessment & Plan (1) Abnormal uterine bleeding (AUB): Comment: Focal crowding on D&C pathology Code(s): N93.9 - Abnormal uterine and vaginal bleeding, unspecified Plan: Discussed with the patient the pathology of endometrial biopsy showing focal crowding without evidence of atypia or malignancy. Discussed with the patient the following: -If untreated the risk of progression to endometrial hyperplasia or endometrial carcinoma, -Other options of treatment discussed with the patient include Progestin therapy: A- levonorgestrel (LNG)-releasing intrauterine device (IUD; LNG 52) Compliance with medical therapy and follow-up endometrial sampling is important. B-Progestin therapy includes intrauterine and oral progestins. While various oral progestin therapies are effective for this indication, the LNG 52 IUD (Mirena, Liletta) is the most effective first-line therapy , compared with oral progestins levonorgestrel IUD treatment is associated with higher regression rates. The patient decided to proceed with Mirena IUD, so a more detailed discussion was carried on including mechanism of action, risks (infection, uterine perforation, failure with ectopic , septic AB, ovarian cyst and pelvic pain, increased breast cancer risk and others) benefits (efficient contraceptive method, others), GC/CG were taken and the patient was asked to call day one of next cycle for IUD insertion, will schedule EMB in 4 months. Instructions given to patient to schedule EMB in 4 months. All questions answered, the patient verbalized understanding Coding Level of Care Code Est Pt Level 3 (25282) Diagnoses Abnormal uterine bleeding (AUB) N93.9
== END 2023-10-04 12:36 | disposition home or self-care (01) ==
LOC: HO.HWS 12:12
PROVIDERS: PCP Physician Assistant; Visit Provider Obstetrics & Gynecology
DX: N93.9 Abnormal uterine and vaginal bleeding, unspecified (principal)
CPT/HCPCS: 99213

== ENCOUNTER → 2023-10-04 12:12 | Outpatient (BNVA) | payer OTHER, SELFPAY | PROVIDERS: PCP Physician Assistant; Visit Provider Obstetrics & Gynecology | DX: N93.9 Abnormal uterine and vaginal bleeding, unspecified (principal) | CPT/HCPCS: 99212 ==

== ENCOUNTER 2023-10-14 13:52 | Outpatient (AMB) | payer OTHER, SELFPAY ==
[2023-10-14 14:02] VITALS: BP 122/72; BMI 44.5
--- NOTE | 2023-10-14 14:02 | MHC.OFFVIS ---
Intake Vital Signs 10/14/23 14:02 Height 5 ft 7 in Weight 284 lb 6.341 oz BMI 44.5 BP 122/72 Intake Visit Reasons: Mirena insertion Allergies caffeine Adverse Reaction (Verified 09/17/23 10:55) Nausea and Vomiting bee sting Allergy (Severe, Uncoded 09/15/23 09:07) Anaphylaxis HPI HPI Comments History of Present Illness Details Presenting for Mirena IUD insertion [facility] Medical History Cervicalgia LINUS (generalized anxiety disorder) Hypothyroidism MDD (major depressive disorder), recurrent episode, moderate Left ovarian cyst Hypothyroid Surgical History History of dental surgery History of removal of ovarian cyst Family History Mother Mental health disorder Sister Mental health disorder Social History Household Members: Spouse Housing: Apartment Alcohol intake: current Alcohol intake frequency: holidays/special occasions only Patient Tobacco Use Status: Former Tobacco user e-Cigarette/Vaping Use: Never Used Second Hand Smoke Exposure: No Substance Use Type: Marijuana service: No Current occupational status: employed 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[employer] Gender identity: Female Cognitive needs: No Hearing needs: No Vision needs: No Female Reproductive History Menstrual Age of Menarche: 16 Date of last menstrual period: 10/12/23 Review of Systems Const All systems reviewed & are unremarkable except as noted in HPI and below Reports as per HPI and Reports no additional complaints GI Reports no additional complaints Reports no additional complaints Physical Exam Vital Signs: Last Vital Signs BP 122/72 10/14/23 14:02 BMI result Body Mass Index 44.5 Office Procedures IUD Insert/Removal Details Details: The patient is presenting for Mirena IUD insertion Urine test was done in the office and was negative; All the contraindications were excluded. The following possible complications were discussed with the patient: Intrauterine , Ectopic , Sepsis, Pelvic Infection, Irregular Bleeding and Amenorrhea, Perforation, Expulsion, Ovarian Cysts, Breast Cancer, The following adverse effects were discussed with the patient: alteration of menstrual bleeding pattern, including: unscheduled uterine bleeding decreased uterine bleeding increased scheduled uterine bleeding female genital tract bleeding ,amenorrhea , genital discharge , vulvovaginitis , breast pain , benign ovarian cyst and associated complications , dysmenorrhea , Gastrointestinal disorders abdominal/pelvic pain, headache/migraine , back pain , acne , depression Alternative options were discussed with the patient including but not limited: control pills, patch, NuvaRing, Depo-medroxyprogesterone acetate, Nexplanon, copper IUD, sterilization, vasectomy, others The procedure was explained in detail to patient , at the end patient signed the informed consent obtained. A no touch technique was used throughout the procedure. A speculum was placed into vagina and cervix was cleaned with betadine). A tenaculum was placed. A plastic sound was advanced through the external and internal os until it reached the fundus of the uterus, the depth was 8 cm. The sound was then withdrawn. The IUD was loaded in a sterile manner and advanced into position. The string was visualized and cut to 3 cm. Tenaculum site hemostatic. All instruments removed from vagina. Patient tolerated the procedure well. NO complications were noted. Patient was instructed to call for fever over 100.4, significant pain unrelieved by Motrin, IUD expulsion, heavy bleeding, or abnormal discharge. In addition, the following clinical considerations were discussed with the patient to call for removal: A stroke or heart attack ,Very severe or migraine headaches ,Unexplained fever ,Yellowing of the skin or whites of the eyes, as these may be signs of serious liver problems , or suspected , Pelvic pain or pain during sex ,HIV positive seroconversion in herself or her partner , Possible exposure to sexually transmitted infections Unusual vaginal discharge or genital sores , severe vaginal bleeding or bleeding that lasts a long time, or if she misses a menstrual period, Inability to feel Mirena's threads Counseled the patient that the IUD does not protect against STI's, recommended use of condoms for the first 7 days post insertion and explained to the patient that condoms are recommended for patients at risk for sexually transmitted infections. In for the patient that Mirena IUD is FDA approved for 8 years for contraception for 5 years for the treatment of heavy menses Instructed the patient to schedule a Follow up appointment in 4 to 6 weeks following insertion. This note was generated with a voice recognition program. Some errors may have been overlooked during the review of this note. Sometimes these errors may affect the content or meaning of a given sentence. [id number] Insertion Procedure code (CPT) selection complete Office Meds Mirena 21 mcg/24 hours (8 yrs) 52 mg intrauterine device Performing Provider: Ede Rievrs MD Performing Location: [facility] Documented (not given) by: Ede Rivers MD on 10/14/23 14:13 Dose Route Admin Location Dispensed Lot Number Expiration Date NDC Season[employer] Ware[employer] 1 device intrauterine ea Assessment & Plan Assessment & Plan (1) Encounter for IUD insertion: Code(s): Z30.430 - Encounter for insertion of intrauterine contraceptive device Plan: Mirena IUD insert, see procedure note Orders: Orders AMB IUD Insertion/Removal - Practice Supplied Today N93.9 - Abnormal uterine and vaginal bleeding, unspecified Medications: New Mirena (levonorgestrel) 1 device intrauterine ONCE 1 ea 0RF IUD insertion NS N93.9 - Abnormal uterine and vaginal bleeding, unspecified Coding Level of Care Code Procedure Only Diagnoses Encounter for IUD insertion Z30.430 CPT Codes Details - CPT: 86667-HWA Insertion ([id number])
== END 2023-10-14 14:16 | disposition home or self-care (01) ==
PROVIDERS: PCP Physician Assistant; Visit Provider Obstetrics & Gynecology
DX: Z30.430 Encounter for insertion of intrauterine contraceptive device (principal); Z32.02 Encounter for pregnancy test, result negative; N93.9 Abnormal uterine and vaginal bleeding, unspecified
CPT/HCPCS: 58300

== ENCOUNTER → 2023-10-14 13:52 | Outpatient (BNVA) | payer OTHER, SELFPAY | PROVIDERS: PCP Physician Assistant; Visit Provider Obstetrics & Gynecology | DX: Z30.430 Encounter for insertion of intrauterine contraceptive device (principal); Z32.02 Encounter for pregnancy test, result negative | CPT/HCPCS: 58300; 81025; J7298 ==

== ENCOUNTER 2023-12-01 13:19 | Outpatient (AMB) | payer OTHER, SELFPAY ==
--- NOTE | 2023-12-01 13:22 | A.OFFVIS_ITS ---
Vital Signs 12/01/23 13:28 Height 5 ft 7 in Weight 284 lb 6.341 oz BMI 44.5 Intake Visit Reasons: 4-6 week iud check Loan Service Officer Required: No Information Interpreted: non-clinical & clinical Petroleum Engineering Professor: Petroleum Engineering Professor Present (Claudia MORALES) Accompanied by: Spouse Allergies caffeine Adverse Reaction (Verified 12/01/23 13:29) Nausea and Vomiting bee sting Allergy (Severe, Uncoded 12/01/23 13:29) Anaphylaxis Is last menstrual period known: No (mirena) HPI Comments Details: The patient is presenting for IUD check . The patient has no complaints [facility] Medical History Cervicalgia LINUS (generalized anxiety disorder) Hypothyroidism MDD (major depressive disorder), recurrent episode, moderate Left ovarian cyst Hypothyroid Surgical History History of dental surgery History of removal of ovarian cyst Family History Mother Mental health disorder Sister Mental health disorder Social History Household Members: Spouse Housing: Apartment Alcohol intake: current Alcohol intake frequency: holidays/special occasions only Patient Tobacco Use Status: Former Tobacco user e-Cigarette/Vaping Use: Never Used Second Hand Smoke Exposure: No Substance Use Type: Marijuana service: No Current occupational status: employed 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[employer] Gender identity: Female Cognitive needs: No Hearing needs: No Vision needs: No Female Reproductive History Menstrual Age of Menarche: 16 Review of Systems Const All systems reviewed & are unremarkable except as noted in HPI and below Physical Exam Vital Signs: BMI result Body Mass Index 44.5 General: Yes no CVA tenderness External Female Exam: normal external appearance and normal appearance of the urethra Speculum Exam - Vagina: normal appearance of the vagina, normal palpation, no lesions and no masses Speculum Exam - Cervix: normal appearance of the cervix, normal palpation, no lesions, no masses, nontender and Other cervical findings present (IUD string in place) Bimanual exam- vagina & uterus: normal bimanual exam, normal palpation, uterine size normal, normal palpation, uterine shape normal, No Cervical tenderness present and non-tender Bimanual Exam- Adnexa, other: normal adnexae Back/Spine/Pelvis Back: no CVA tenderness Assessment & Plan Assessment & Plan (1) IUD check up: Code(s): Z30.431 - Encounter for routine checking of intrauterine contraceptive device Category: Medical Plan: UPT done in the office was negative. Discussed with the patient the finding on physical exam, IUD string in place, the patient was reassured. Instructions given to patient to call in case of temperature above 100.4, severe cramping/pelvic pain, abnormal discharge or abnormal uterine bleeding or if she misses her menstrual cycle. Otherwise follow-up at the schedule EMB appointment. All questions answered, the patient verbalized understanding. Coding Level of Care Code Est Pt Level 3 (32830) Diagnoses IUD check up Z30.431
[2023-12-01 13:28] VITALS: BMI 44.5
== END 2023-12-01 15:29 | disposition home or self-care (01) ==
PROVIDERS: PCP Physician Assistant; Visit Provider Obstetrics & Gynecology
DX: Z32.02 Encounter for pregnancy test, result negative (principal); Z30.431 Encounter for routine checking of intrauterine contraceptive device
CPT/HCPCS: 99213

== ENCOUNTER → 2023-12-01 13:19 | Outpatient (BNVA) | payer OTHER, SELFPAY | PROVIDERS: PCP Physician Assistant; Visit Provider Obstetrics & Gynecology | DX: Z30.431 Encounter for routine checking of intrauterine contraceptive device (principal) | CPT/HCPCS: 81025; 99212 ==

== ENCOUNTER 2024-02-02 10:32 | Outpatient (AMB) | payer OTHER, SELFPAY ==
--- NOTE | 2024-02-02 10:59 | MHC.OFFVIS ---
Vital Signs 02/02/24 11:03 Height 5 ft 7 in Weight 284 lb 6.341 oz BMI 44.5 BP 120/76 Intake Visit Reasons: EMB Fur Feeder Required: No Information Interpreted: non-clinical & clinical Bone Char Kiln Tender: Bone Char Kiln Tender Present (Claudia MORALES) Accompanied by: Spouse Allergies caffeine Adverse Reaction (Verified 02/02/24 11:03) Nausea and Vomiting bee sting Allergy (Severe, Uncoded 02/02/24 11:03) Anaphylaxis Is last menstrual period known: No (mirena) HPI Comments Details: Presenting for a repeat EMB after IUD insertion since last EMB showed focal gland crowding in 10/09 [facility] Medical History Cervicalgia LINUS (generalized anxiety disorder) Hypothyroidism MDD (major depressive disorder), recurrent episode, moderate Left ovarian cyst Hypothyroid Surgical History History of dental surgery History of removal of ovarian cyst Family History Mother Mental health disorder Sister Mental health disorder Social History Household Members: Spouse Housing: Apartment Alcohol intake: current Alcohol intake frequency: holidays/special occasions only Patient Tobacco Use Status: Former Tobacco user e-Cigarette/Vaping Use: Never Used Second Hand Smoke Exposure: No Substance Use Type: Marijuana service: No Current occupational status: employed 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[employer] Gender identity: Female Cognitive needs: No Hearing needs: No Vision needs: No Female Reproductive History Menstrual Age of Menarche: 16 Review of Systems Const All systems reviewed & are unremarkable except as noted in HPI and below Reports as per HPI and Reports no additional complaints GI Reports no additional complaints Reports no additional complaints Physical Exam Vital Signs: Last Vital Signs BP 120/76 02/02/24 11:03 BMI result Body Mass Index 44.5 Office Procedures Endometrial Biopsy Details: The patient was counseled regarding the indication and benefits of endometrial sampling to rule out endometrial pathology including not limited to endometrial hyperplasia or endometrial cancer and others; The alternatives (Either do nothing vs. hysteroscopy D&C) & the risks were discussed with the patient including but not limited: pain, uterine perforation, bleeding, infection, possible injury to bladder, bowel, ureter, possible need for blood transfusion with all its possible risks. The patient verbalized understanding all questions answered and signed consent. Urine test done in the office was negative The patient was placed into the dorsal lithotomy position; a speculum was inserted in the vagina. Using aseptic technique for the procedure, the cervix was cleansed with Betadine. The anterior lip of the cervix was grasped with a single tooth tenaculum. The uterus was sounded to 7 cm with a 4 mm Pipelle was used. Tissues samples were obtained and placed in formalin, in a patient labeled container and sent to the pathology department. At the end of the procedure, there was minimal bleeding noted The patient tolerated the procedure well and was discharged in good condition with the following instructions: Nothing in the vagina until the bleeding stops. No sex until the bleeding stops, to call if any of the following occurs: fever (>100.4), flu-like symptoms, abdominal pain, heavy bleeding, four smelling vaginal discharge. The patient was instructed to schedule a Follow up appointment in 2 weeks to discuss pathology results of the biopsy and treatment options. This note was generated with a voice recognition program. Some errors may have been overlooked during the review of this note. Sometimes these errors may affect the content or meaning of a given sentence. [id number] Biopsy Results AMB Test Urine AMB Test Urine Negative Last Edit by Claudia Barrera CMA on 02/02/24 11:10 Results Reviewed Results Reviewed: Laboratory Last Values [facility]st Clinic Negative 02/02/24 11:09 Assessment & Plan Assessment & Plan (1) Abnormal uterine bleeding (AUB): Comment: Focal crowding on D&C pathology Code(s): N93.9 - Abnormal uterine and vaginal bleeding, unspecified Category: Medical Plan: EMB done, see procedure note Orders: Orders AMB HCG Urine Test Today Z32.02 - Encounter for test, result negative AMB Endometrial Biopsy Today N93.9 - Abnormal uterine and vaginal bleeding, unspecified Coding Level of Care Code Procedure Only Diagnoses Abnormal uterine bleeding (AUB) N93.9 CPT Codes Endometrial Biopsy - CPT: 15670-Wcjmyftmymx Biopsy ([id number])
[2024-02-02 11:03] VITALS: BP 120/76; BMI 44.5
== END 2024-02-02 13:32 | disposition home or self-care (01) ==
LOC: HO.HWS 10:32
PROVIDERS: PCP Physician Assistant; Visit Provider Obstetrics & Gynecology
DX: N93.9 Abnormal uterine and vaginal bleeding, unspecified (principal); Z32.02 Encounter for pregnancy test, result negative
CPT/HCPCS: 58100

== ENCOUNTER 2024-02-02 10:32 | Outpatient (REF) | payer OTHER, SELFPAY | END 2024-02-02 10:33 | disposition home or self-care (01) | LOC: HO.LNP 10:32 | PROVIDERS: PCP Physician Assistant; Visit Provider Obstetrics & Gynecology | DX: Z32.02 Encounter for pregnancy test, result negative (principal); N93.9 Abnormal uterine and vaginal bleeding, unspecified | CPT/HCPCS: 58100; 81025; 88305 ==

== ENCOUNTER 2024-02-09 12:15 | Outpatient (AMB) | payer OTHER, SELFPAY ==
[2024-02-09 12:21] VITALS: BMI 44.5
--- NOTE | 2024-02-09 12:21 | A.OFFVIS_ITS ---
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 The patient has no complaints, no vaginal bleeding, no feverishness chills or abdominal pain. The endometrial biopsy pathology report showed the following: Benign dyssynchronous early to mid secretory endometrium with few fragments of stroma with decidual stromal change suggesting partial progestin response, and benign endocervical glandular mucosa; no atypia or carcinoma PFSH Medical History Cervicalgia LINUS (generalized anxiety disorder) Hypothyroidism MDD (major depressive disorder), recurrent episode, moderate Left ovarian cyst Hypothyroid Surgical History History of dental surgery History of removal of ovarian cyst Family History Mother Mental health disorder Sister Mental health disorder Social History Household Members: Spouse Housing: Apartment Alcohol intake: current Alcohol intake frequency: holidays/special occasions only Patient Tobacco Use Status: Former Tobacco user e-Cigarette/Vaping Use: Never Used Second Hand Smoke Exposure: No Substance Use Type: Marijuana service: No Current occupational status: employed 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9 - Abnormal uterine and vaginal bleeding, unspecified Category: Medical Plan: Discussed with the patient the results the pathology no evidence of focal crowding will repeat EMB in 3 months. Instructions given to patient to call in case of abnormal uterine bleeding or any other concerns and to schedule EMB appointment in 3 months. All questions answered, the patient verbalized understanding Coding Level of Care Code Est Pt Level 3 (13844) Diagnoses Abnormal uterine bleeding (AUB) N93.9
== END 2024-02-09 13:04 | disposition home or self-care (01) ==
PROVIDERS: PCP Physician Assistant; Visit Provider Obstetrics & Gynecology
DX: N93.9 Abnormal uterine and vaginal bleeding, unspecified (principal)
CPT/HCPCS: 99213

== ENCOUNTER → 2024-02-09 12:15 | Outpatient (BNVA) | payer OTHER, SELFPAY | PROVIDERS: PCP Physician Assistant; Visit Provider Obstetrics & Gynecology | DX: N93.9 Abnormal uterine and vaginal bleeding, unspecified (principal) | CPT/HCPCS: 99212 ==

== ENCOUNTER 2024-05-24 10:19 | Outpatient (REF) | payer OTHER, SELFPAY | END 2024-05-24 10:20 | disposition home or self-care (01) | LOC: HO.LNP 10:19 | PROVIDERS: PCP Physician Assistant; Visit Provider Obstetrics & Gynecology | DX: N93.9 Abnormal uterine and vaginal bleeding, unspecified (principal); Z32.02 Encounter for pregnancy test, result negative | CPT/HCPCS: 58100; 81025; 88305 ==

== ENCOUNTER 2024-05-24 10:19 | Outpatient (AMB) | payer OTHER, SELFPAY ==
[2024-05-24 10:21] VITALS: BP 128/70; BMI 44.5
--- NOTE | 2024-05-24 10:21 | A.OFFVIS_ITS ---
Vital Signs 05/24/24 10:21 Height 5 ft 7 in Weight 284 lb BMI 44.5 BP 128/70 Blood Pressure Location Rt brachial Position Sitting Intake Visit Reasons: EMB Allergies caffeine Adverse Reaction (Verified 05/24/24 10:21) Nausea and Vomiting bee sting Allergy (Severe, Uncoded 05/24/24 10:21) Anaphylaxis HPI Comments Details: Presenting for repeat EMB [facility] Medical History Cervicalgia LINUS (generalized anxiety disorder) Hypothyroidism MDD (major depressive disorder), recurrent episode, moderate Left ovarian cyst Hypothyroid Surgical History History of dental surgery History of removal of ovarian cyst Family History Mother Mental health disorder Sister Mental health disorder Social History Household Members: Spouse Housing: Apartment Alcohol intake: current Alcohol intake frequency: holidays/special occasions only Patient Tobacco Use Status: Former Tobacco user e-Cigarette/Vaping Use: Never Used Second Hand Smoke Exposure: No Substance Use Type: Marijuana service: No Current occupational status: employed 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[employer] Gender identity: Female Cognitive needs: No Hearing needs: No Vision needs: No Female Reproductive History Menstrual Age of Menarche: 16 Review of Systems Const All systems reviewed & are unremarkable except as noted in HPI and below Physical Exam Vital Signs: Last Vital Signs BP 128/70 05/24/24 10:21 BMI result Body Mass Index 44.5 General: Yes no CVA tenderness External Female Exam: normal external appearance and normal appearance of the urethra Speculum Exam - Vagina: normal appearance of the vagina, normal palpation, no lesions and no masses Speculum Exam - Cervix: normal appearance of the cervix, normal palpation, no lesions, no masses, nontender and Other cervical findings present (IUD string seen in place) Bimanual exam- vagina & uterus: normal bimanual exam, normal palpation, uterine size normal, normal palpation, uterine shape normal, No Cervical tenderness present and non-tender Bimanual Exam- Adnexa, other: normal adnexae Back/Spine/Pelvis Back: no CVA tenderness Office Procedures Endometrial Biopsy Details: The patient was counseled regarding the indication and benefits of endometrial sampling to rule out endometrial pathology including not limited to endometrial hyperplasia or endometrial cancer and others; The alternatives (Either do nothing vs. hysteroscopy D&C) & the risks were discussed with the patient including but not limited: pain, uterine perforation, bleeding, infection, possible injury to bladder, bowel, ureter, possible need for blood transfusion with all its possible risks. The patient verbalized understanding all questions answered and signed consent. Urine test done in the office was negative The patient was placed into the dorsal lithotomy position; a speculum was inserted in the vagina. Using aseptic technique for the procedure, the cervix was cleansed with Betadine. The anterior lip of the cervix was grasped with a single tooth tenaculum. The uterus was sounded to 7 cm with a 4 mm Pipelle was used. Tissues samples were obtained and placed in formalin, in a patient labeled container and sent to the pathology department. At the end of the procedure, there was minimal bleeding noted The patient tolerated the procedure well and was discharged in good condition with the following instructions: Nothing in the vagina until the bleeding stops. No sex until the bleeding stops, to call if any of the following occurs: fever (>100.4), flu-like symptoms, abdominal pain, heavy bleeding, four smelling vaginal discharge. The patient was instructed to schedule a Follow up appointment in 2 weeks to discuss pathology results of the biopsy and treatment options. This note was generated with a voice recognition program. Some errors may have been overlooked during the review of this note. Sometimes these errors may affect the content or meaning of a given sentence. 11716-Bsdowrshmei Biopsy Results AMB Test Urine AMB Test Urine Negative Last Edit by Johanne Merrill CMA on 05/24/24 10:29 Results Reviewed Results Reviewed: Laboratory Last Values Tst Clinic Negative 05/24/24 10:28 Assessment & Plan Assessment & Plan (1) Abnormal uterine bleeding (AUB): Comment: Focal crowding on D&C pathology in 10/09 Resolved on Mirena IUD in 02/08 Code(s): N93.9 - Abnormal uterine and vaginal bleeding, unspecified Category: Medical Plan: EMB done, see procedure note Orders: Orders AMB HCG Urine Test Today Z32.02 - Encounter for test, result negative AMB Endometrial Biopsy Today N93.9 - Abnormal uterine and vaginal bleeding, unspecified Surgical Today N93.9 - Abnormal uterine and vaginal bleeding, unspecified Coding Level of Care Code Procedure Only Diagnoses Abnormal uterine bleeding (AUB) N93.9 CPT Codes Endometrial Biopsy - CPT: 34000-Eewjloerknz Biopsy ([id number])
== END 2024-05-24 10:49 | disposition home or self-care (01) ==
LOC: HO.HWS 10:19
PROVIDERS: PCP Physician Assistant; Visit Provider Obstetrics & Gynecology
DX: N93.9 Abnormal uterine and vaginal bleeding, unspecified (principal); Z32.02 Encounter for pregnancy test, result negative
CPT/HCPCS: 58100

== ENCOUNTER 2024-06-21 08:48 | Outpatient (AMB) | payer OTHER, SELFPAY ==
--- NOTE | 2024-06-21 08:40 | A.OFFVIS_ITS ---
Intake Visit Reasons: EMB Results/please call at 8:00am Allergies caffeine Adverse Reaction (Verified 05/24/24 10:21) Nausea and Vomiting bee sting Allergy (Severe, Uncoded 05/24/24 10:21) Anaphylaxis HPI Comments Details: The patient is presenting after endometrial biopsy. The patient has no complaints, no vaginal bleeding, no feverishness chills or abdominal pain. The endometrial biopsy pathology report showed the following: Superficial fragments of inactive endometrium with patchy pseudodecidual change, consistent with exogenous progestin; no atypia identified [facility] Medical History Cervicalgia LINUS (generalized anxiety disorder) Hypothyroidism MDD (major depressive disorder), recurrent episode, moderate Left ovarian cyst Hypothyroid Surgical History History of dental surgery History of removal of ovarian cyst Family History Mother Mental health disorder Sister Mental health disorder Social History Household Members: Spouse Housing: Apartment Alcohol intake: current Alcohol intake frequency: holidays/special occasions only Patient Tobacco Use Status: Former Tobacco user e-Cigarette/Vaping Use: Never Used Second Hand Smoke Exposure: No Substance Use Type: Marijuana service: No Current occupational status: employed 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 [employer] Gender identity: Female Cognitive needs: No Hearing needs: No Vision needs: No Female Reproductive History Menstrual Age of Menarche: 16 Review of Systems Const All systems reviewed & are unremarkable except as noted in HPI and below Reports as per HPI and Reports no additional complaints GI Reports no additional complaints Reports no additional complaints Telehealth Telehealth Telehealth Platform: Telephone Location of provider rendering services: practice address Location of patient: address on file Patient Identification confirmed using: Name, : Yes Telehealth method: video Patient verbally consented to treatment: Yes Patient verbally consented to billing insurance company: Yes Patient informed of any privacy concerns related to visit: Yes Assessment & Plan Assessment & Plan (1) Abnormal uterine bleeding (AUB): Comment: Focal crowding on D&C pathology in 10/09 Resolved on Mirena IUD in 02/08 06/11 EMB inactive endometrium Code(s): N93.9 - Abnormal uterine and vaginal bleeding, unspecified Category: Medical Plan: Discussed with the patient the results of the pathology showing inactive endometrium. Instructions given to patient to schedule EMB appointment in 3 months to call in case of abnormal uterine bleeding occurs or any other concerns. All questions answered, the patient verbalized understanding. I spent a total of 20 minutes reviewing the chart, talking to the patient via video and documenting in the medical record. Coding Level of Care Code Tele Est Pt Level 3 (91491) Diagnoses Abnormal uterine bleeding (AUB) N93.9
== END 2024-06-21 09:28 | disposition home or self-care (01) ==
PROVIDERS: PCP Physician Assistant; Visit Provider Obstetrics & Gynecology
DX: N93.9 Abnormal uterine and vaginal bleeding, unspecified (principal)
CPT/HCPCS: 99213

== ENCOUNTER 2024-08-25 09:07 | Outpatient (REF) | payer OTHER, SELFPAY ==
--- OUTSIDE RECORDS SUMMARY | 2024-08-25 11:06 | XMS_ITS | Encounter Summary ---
[facility] Address [address] [place] [address] Care Team Providers Care Laboratory Asst Name Role Phone Sonal Cartwright MD Primary Care Provider [phone] Encounter Details Date Type Department Care Team (Latest Contact Info) Description 08/11/2024 9:30 AM EST - 08/11/2024 11:59 PM EST Hospital Encounter [facility] [address] Pain in left wrist Discharge Disposition: Home or Self Care Social History Tobacco Use Types Packs/Day Years Used Date Smoking Tobacco: Former Cigarettes Q uit: 07/19/2013 Smokeless Tobacco: Never Alcohol Use Standard Drinks/Week Comments Yes 0 (1 standard drink = 0.6 oz pur e alcohol) Sex and Gender Information Value Date Recorded Sex Assigned at Not on file Gender Identity Not on file Sexual Orientation Not on file Job Start Date Occupation Industry Not on file Not on file Not on file documented as of this encounter Discharge Disposition Disposition Code Departure Means Destination Home or Self Care documented in this encounter Plan of Treatment Not on file documented as of this encounter Procedures Procedure Name Priority Date/Time Associated Diagnosis Comments XR WRIST 3+ VIEWS LEFT Routine 08/11/2024 9:48 AM EST Pain in left wrist documented in this encounter Results * XR Wrist 3+ Views Left (08/11/2024 9:48 AM EST) Anatomical Region Laterality Modality Upper Extremities, Wrist Left Radiogr aphic Imaging 08/11/2024 1:06 PM EST Impressions 08/11/2024 1:07 PM EST No osseous or articular abnormalities of the left wrist. -------- FINAL REPORT -------- Dictated By: Cheng Au Dictated Date: 08/11/2024 13:06 ET Assigned Physician: Cheng Au Reviewed and Electronically Signed By: Cheng Au Signed Date: 08/11/2024 13:07 ET Workstation ID: [id number] Transcribed By: Self Edit Transcribed Date: 08/11/2024 13:06 ET Narrative 08/11/2024 1:07 PM EST HISTORY: pain TECHNIQUE: 3 radiographs of the left wrist COMPARISON: ??None. FINDINGS: There is normal mineralization with no fracture or malalignment. ??The visualized articulations are normal. ??The carpal bones demonstrate normal alignment. ??No significant soft tissue swelling is identified. Procedure Note Cheng Au MD - 08/11/2024 HISTORY: pain TECHNIQUE: 3 radiographs of the left wrist COMPARISON: None. FINDINGS: There is normal mineralization with no fracture or malalignment.The visualized articulations are normal. The carpal bones demonstratenormal alignment. No significant soft tissue swelling is identified. IMPRESSION: No osseous or articular abnormalities of the left wrist. -------- FINAL REPORT -------- Dictated By: Cheng Au Dictated Date: 08/11/2024 13:06 ET Assigned Physician: Cheng Au Reviewed and Electronically Signed By: Cheng Au Signed Date: 08/11/2024 13:07 ET Workstation ID: [id number] Transcribed By: Self Edit Transcribed Date: 08/11/2024 13:06 ET Rafiq LONDONO IMG XR PROCEDURES documented in this encounter Visit Diagnoses Diagnosis Pain in left wrist Pain in joint, forearm documented in this encounter Care Teams Laboratory Asst Relationship Specialty Start Date End Date Sonal Cartwright MD [address] [place] [id number] PCP - General 05/26/23 documented as of this encounter
--- OUTSIDE RECORDS SUMMARY | 2024-08-25 11:06 | XMS_ITS | Clinical Summary ---
Author Organization [facility] [place] 230 [facility] lding Address [address] [place] [address] Phone Care Team Providers Care Hand Presser Name Role Phone Sonal Cartwright MD Primary Care Provider [phone] Encounters Date Type Department Care Team Description 08/11/2024 9:30 AM EST - 08/11/2024 11:59 PM [facility] Hospital Encounter [facility] [address] [place] [id number] Pain in left wrist Discharge Disposition: Home or Self Care from Last 3 Months Surgical History Surgery Date Site/Laterality Comments OTHER SURGICAL HISTORY 2019 PROCEDURE: HISTORICAL ESSURE (BILATERAL OCCLUSION FALLOPIAN TUBES-PERMA) Medical History Medical History Date Comments Hypothyroidism DX:Hypothyroidis m Anxiety and depression DX:Anxiet y and depression H/O bee sting allergy DX:H/O bee sting allergy Cervical radiculopathy DX:Cervic al radiculopathy Ovarian cyst DX:Ovarian cyst; COMMENT: left Family History Medical History Relation Name Comments No Known Problems Brother No Known Problems Father No Known Problems Maternal Grandfather No Known Problems Maternal Grandmother No Known Problems Mother No Known Problems Paternal Grandfather No Known Problems Paternal Grandmother No Known Problems Sister Relation Name Status Comments Brother Father Maternal Grandfather Maternal Grandmother Mother Paternal Grandfather Paternal Grandmother Sister Social History Tobacco Use Types Packs/Day Years [...] file Not on file Not on file Obstetrics History Last Filed Vital Signs Vital Sign Reading Time Taken Comments Blood Pressure 104/70 03/03/2024 9:03 AM EDT Pulse 87 03/03/2024 9:03 AM EDT Temperature - - Respiratory Rate - - Oxygen Saturation - - Inhaled Oxygen Concentration - - Weight 130 kg (286 lb 6.4 oz) 03/03/2024 9:03 AM EDT Height 170.2 cm (5' 7 ) 03/03/2024 9:03 AM EDT Body Mass Index 44.86 03/03/2024 9:03 AM EDT Plan of Treatment Health Maintenance Due Date Last Done Comments DTaP,Tdap,and Td Vaccines (1 - Tdap) 2004 Hepatitis B Vaccines (1 of 3 - 19+ 3-dose series) 2004 Cervical Cancer Screening: P ap Smear 2006 Cholesterol Screening (Lipid Panel) 06/20/2022 Depression Screening 06/20/2022 HIV Screening 06/20/2022 Hepatitis C Screening 06/20/2022 Social Influencers of Health Screening 06/20/2022 COVID-19 Vaccine (2023-2 5 season) 2024 06/06/2021, 05/09/2021 Influenza Vaccine (#1) 2024 HIB Vaccines Aged Out No longer eligi ble based on patient's age to complete this topic HPV Vaccines Aged Out No longer eligi ble based on patient's age to complete this topic Hepatitis A Vaccines Aged Out No long er eligible based on patient's age to complete this topic IPV Vaccines Aged Out No longer eligi ble based on patient's age to complete this topic MMR Vaccines Aged Out No longer eligi ble based on patient's age to complete this topic Meningococcal ACWY Vaccine Aged Out N o longer eligible based on patient's age to complete this topic Pneumococcal Vaccine: Pediatrics (0 to 5 Years) and At-Risk Patients (6 to 64 Years) Aged Out No longer eligible b ased on patient's age to complete this topic RSV Immunization Patients Under 20 months Aged Out No longer eligible b ased on patient's age to complete this topic Varicella Vaccines Aged Out No longer eligible based on patient's age to complete this topic Procedures Procedure Name Priority Date/Time Associated Diagnosis Comments XR WRIST 3+ VIEWS LEFT Routine 08/11/2024 9:48 AM EST Pain in left wrist from Last 3 Months Results * XR Wrist 3+ Views Left [...] Signed Date: 08/11/2024 13:07 ET Workstation ID: [id number] Transcribed By: Self Edit Transcribed Date: 08/11/2024 [...] Signed Date: 08/11/2024 13:07 ET Workstation ID: [id number] Transcribed By: Self Edit Transcribed Date: 08/11/2024 13:06 ET Rafiq LONDONO IMAnayeli XR PROCEDURES from Last 3 Months Care Teams Hand Presser Relationship Specialty Start Date End Date Sonal Cartwright MD [address] [place] [id number] PCP - General 05/26/23
[2024-08-28 12:36] LABS: CT PCR DETECTED (Not Detect.); NG PCR NOT DETECTED (Not Detect.)
== END 2024-08-25 09:08 | disposition home or self-care (01) ==
LOC: HO.LNP 09:07
PROVIDERS: PCP Physician Assistant; Visit Provider Obstetrics & Gynecology
DX: Z30.433 Encounter for removal and reinsertion of intrauterine contraceptive device (principal); T83.32XA Displacement of intrauterine contraceptive device, initial encounter
CPT/HCPCS: 58300; 58301; 81025; 87491; 87591; J7298

== ENCOUNTER → 2024-08-25 09:07 | Outpatient (AMB) | payer OTHER, SELFPAY ==
--- NOTE | 2024-08-25 09:17 | A.OFFVIS_ITS ---
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 The patient with the emergency room few weeks ago CT scan showed malpositioned IUD. The patient is having some pelvic cramping no other associated symptoms. [facility] Medical History Cervicalgia LINUS (generalized anxiety disorder) Hypothyroidism MDD (major depressive disorder), recurrent episode, moderate Left ovarian cyst Hypothyroid Surgical History History of dental surgery History of removal of ovarian cyst Family History Mother Mental health disorder Sister Mental health disorder Social History Household Members: Spouse Housing: Apartment Alcohol intake: current Alcohol intake frequency: holidays/special occasions only Patient Tobacco Use Status: Former Tobacco user e-Cigarette/Vaping Use: Never Used Second Hand Smoke Exposure: No Substance Use Type: Marijuana service: No Current occupational status: employed 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 Gender identity: Female Cognitive needs: No Hearing needs: No Vision needs: No Female Reproductive History Menstrual Age of Menarche: 16 Review of Systems Const All systems reviewed & are unremarkable except as noted in HPI and below Physical Exam Vital Signs: Last Vital Signs BP 110/70 08/25/24 09:17 BMI result Body Mass Index 44.5 General: Yes no CVA tenderness External Female Exam: normal external appearance and normal appearance of the urethra Speculum Exam - Vagina: normal appearance of the vagina, normal palpation, no lesions and no masses Speculum Exam - Cervix: normal appearance of the cervix, normal palpation, no lesions, no masses, nontender and Other cervical findings present (IUD string in place) Bimanual exam- vagina & uterus: normal bimanual exam, normal palpation, uterine size normal, normal palpation, uterine shape normal, No Cervical tenderness present and non-tender Bimanual Exam- Adnexa, other: normal adnexae Back/Spine/Pelvis Back: no CVA tenderness Office Procedures IUD Insert/Removal Details Details: The patient is presenting for IUD removal and IUD reinsertion. Her last menstrual period was within the last 5 days, Urine test was done in the office and was negative; All the contraindications were excluded. The following possible complications were discussed with the patient: Intrauterine , Ectopic , Sepsis, Pelvic Infection, Irregular Bleeding and Amenorrhea, Perforation, Expulsion, Ovarian Cysts, Breast Cancer. The following adverse effects were discussed with the patient: alteration of menstrual bleeding pattern, including: unscheduled uterine bleeding decreased uterine bleeding increased scheduled uterine bleeding female genital tract bleeding ,amenorrhea , genital discharge , vulvovaginitis , breast pain , benign ovarian cyst and associated complications , dysmenorrhea , Gastrointestinal disorders abdominal/pelvic pain, headache/migraine , back pain , acne , depression Alternative options were discussed with the patient including but not limited: control pills, patch, NuvaRing, Depo-medroxyprogesterone acetate, Nexplanon, copper IUD, sterilization, vasectomy, others The procedure was explained in detail to patient , at the end patient signed the informed consent obtained. Alternative options were discussed with the patient The patient signed the consent and agreed with the plan; all questions answered. Urine test was done in the office and was negative Preop dx: Requesting IUD removal and Reinsertion Op: IUD removal and Mirena insertion Post op dx: same EBL= 10 cc Procedure: The patient was put in the dorsal lithotomy position a speculum was inserted in the vagina the IUD thread identified. Using a Maria Victoria clamp the thread was grasped and the IUD pulled out with no complications. A no touch technique was used throughout the procedure. A speculum was placed into vagina and cervix was cleaned with betadine). A tenaculum was placed. A plastic sound was advanced through the external and internal os until it reached the fundus of the uterus, the depth was 8 cm. The sound was then withdrawn. The IUD was loaded in a sterile manner and advanced into position. The string was visualized and cut to 3 cm. Tenaculum site hemostatic. All instruments removed from vagina. Patient tolerated the procedure well. NO complications were noted. Patient was instructed to call for fever over 100.4, significant pain unrelieved by Motrin, IUD expulsion, heavy bleeding, or abnormal discharge. In addition, the following clinical considerations were discussed with the patient to call for removal: A stroke or heart attack ,Very severe or migraine headaches ,Unexplained fever ,Yellowing of the skin or whites of the eyes, as these may be signs of serious liver problems , or suspected , Pelvic pain or pain during sex ,HIV positive seroconversion in herself or her partner , Possible exposure to sexually transmitted infections Unusual vaginal discharge or genital sores , severe vaginal bleeding or bleeding that lasts a long time, or if she misses a m enstrual period, Inability to feel Mirena's threads Counseled the patient that the IUD does not protect against STI's, recommended use of condoms for the first 7 days post insertion and explained to the patient that condoms are recommended for patients at risk for sexually transmitted infections. Follow up appointment made for 4 weeks following insertion. Date of removal in no more than five years for DUB treatment and 8 years for contraception from today?s date was d/w patient. This note was generated with a voice recognition program. Some errors may have been overlooked during the review of this note. Sometimes these errors may affect the content or meaning of a given sentence. 93762-SZV Insertion 54311-DJT Removal Procedure code (CPT) selection complete Office Meds Mirena 21 mcg/24 hr (up to 8 years) 52 mg intrauterine device Performing Provider: Ede Rivers MD Performing Location: [facility] Documented (not given) by: Ede Rivers MD on 08/25/24 09:38 Dose Route Admin Location Dispensed Lot Number Expiration Date [facility] [address] 1 device intrauterine ea Assessment & Plan Assessment & Plan (1) Malpositioned IUD: Code(s): T83.32XA - Displacement of intrauterine contraceptive device, initial encounter Category: Medical Plan: UPT done in the office was negative. GC/CT done. Mirena IUD taken out, see procedure note. Discussed with the patient the options of treatment including reinsertion of Mirena IUD versus p.o. progesterone. All pros and cons, risks and benefits of each were discussed with the patient, the patient decided to proceed with reinsertion of new Mirena IUD. Mirena IUD reinserted, see procedure note. Orders: Orders AMB IUD Insertion/Removal - Practice Supplied Today T83.32XA - Displacement of intrauterine contraceptive device, initial encounter Medications: New Mirena (levonorgestrel) 1 device intrauterine ONCE 1 ea 0RF IUD removal and reinsertion NS T83.32XA - Displacement of intrauterine contraceptive device, initial encounter Coding Level of Care Code Procedure Only Diagnoses Malpositioned IUD T83.32XA CPT Codes Details - CPT: 60147-POB Insertion ([id number]) Details - CPT: 14649-LWS Removal ([id number])
== END | disposition home or self-care (01) ==
PROVIDERS: PCP Physician Assistant; Visit Provider Obstetrics & Gynecology
CPT/HCPCS: 58300; 58301

== ENCOUNTER 2024-09-13 08:54 | Outpatient (AMB) | payer OTHER, SELFPAY ==
--- NOTE | 2024-09-13 08:56 | MHC.OFFVIS ---
Intake Visit Reasons: TEODORO Health And Safety Coordinator: Health And Safety Coordinator Present (Kiesha) Accompanied by: Self / Same As Patient Allergies caffeine Adverse Reaction (Verified 09/13/24 08:58) Nausea and Vomiting bee sting Allergy (Severe, Uncoded 08/25/24 09:18) Anaphylaxis HPI Comments Details: The patient is presenting for a test of cure. The patient took the antibiotics course; she informed her partner who was screened the results were negative and was treated too. The patient reports no intercourse last 2 years. [facility] Medical History Cervicalgia LINUS (generalized anxiety disorder) Hypothyroidism MDD (major depressive disorder), recurrent episode, moderate Left ovarian cyst Hypothyroid Surgical History History of dental surgery History of removal of ovarian cyst Family History Mother Mental health disorder Sister Mental health disorder Social History Household Members: Spouse Housing: Apartment Alcohol intake: current Alcohol intake frequency: holidays/special occasions only Patient Tobacco Use Status: Former Tobacco user e-Cigarette/Vaping Use: Never Used Second Hand Smoke Exposure: No Substance Use Type: Marijuana service: No Current occupational status: employed 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[employer] Gender identity: Female Cognitive needs: No Hearing needs: No Vision needs: No Female Reproductive History Menstrual Age of Menarche: 16 Review of Systems Const All systems reviewed & are unremarkable except as noted in HPI and below Physical Exam General: Yes no CVA tenderness External Female Exam: normal external appearance and normal appearance of the urethra Speculum Exam - Vagina: normal appearance of the vagina, normal palpation, no lesions and no masses Speculum Exam - Cervix: normal appearance of the cervix, normal palpation, no lesions, no masses, nontender and Other cervical findings present (IUD string seen) Bimanual exam- vagina & uterus: normal bimanual exam, normal palpation, uterine size normal, normal palpation, uterine shape normal, No Cervical tenderness present and non-tender Bimanual Exam- Adnexa, other: normal adnexae Back/Spine/Pelvis Back: no CVA tenderness Assessment & Plan Assessment & Plan (1) Chlamydia: Code(s): A74.9 - Chlamydial infection, unspecified Category: Medical Plan: GC/CT taken with BV panel. Will check the results and treat accordingly. All questions answered, the patient verbalized understanding Coding Level of Care Code Est Pt Level 3 (26788) Diagnoses Chlamydia A74.9
--- OUTSIDE RECORDS SUMMARY | 2024-09-13 09:42 | XMS_ITS | Clinical Summary ---
Author Organization [facility] 230 [facility] l[address] Address [address] [place] [address] Phone Care Team Providers Care Portfolio Management Marketing Name Role Phone Unavailable Primary Care Provider Unavailabl e Encounters Date Type Department Care Team Description 08/11/2024 9:30 AM EST - 08/11/2024 11:59 PM EST Hospital Encounter [facility] [address] [place] [address] Pain in left wrist Discharge Disposition: [...] drink = 0.6 oz pur e alcohol) Comments Unknown Sex and Gender Information Value Date Recorded Sex Assigned at Not on file Legal Sex Female 7:16 PM EST Gender Identity Not on file Sexual Orientation Not on file Obstetrics History Last Filed [...] patient's age to complete this topic Meningococcal B Vacine Aged Out No lo nger eligible based on patient's age to complete [...] Dictated Date: 08/11/2024 13:06 ET Assigned Physician: Cehng Au Reviewed and Electronically Signed By: Cheng Au Signed Date: 08/11/2024 13:07 ET Workstation ID: [id number] Transcribed By: Self Edit Transcribed Date: 08/11/2024 [...] Signed Date: 08/11/2024 13:07 ET Workstation ID: [id number] Transcribed By: Self Edit Transcribed Date: 08/11/2024 13:06 ET Rafiq LONDONO IMG XR PROCEDURES Final Result from Last 3 Months Insurance [facility] PLANS
== END 2024-09-13 09:38 | disposition home or self-care (01) ==
PROVIDERS: PCP Physician Assistant; Visit Provider Obstetrics & Gynecology
DX: A74.9 Chlamydial infection, unspecified (principal)
CPT/HCPCS: 99213

== ENCOUNTER 2024-09-13 08:54 | Outpatient (REF) | payer OTHER, SELFPAY ==
--- OUTSIDE RECORDS SUMMARY | 2024-09-13 11:02 | XMS_ITS | Clinical Summary ---
Author Organization [facility] 230 [facility] l[address] Address [address] [place] [address] Phone Care Team Providers Care Farmer Cash Grain Name Role Phone Unavailable Primary Care Provider Unavailabl e Encounters Date Type Department Care Team Description 08/11/2024 9:30 AM EST - 08/11/2024 11:59 PM EST Hospital Encounter [facility] [address] [place] [address] Pain in left wrist Discharge [...] Signed Date: 08/11/2024 13:07 ET Workstation ID: [id number] Transcribed By: Self Edit Transcribed Date: 08/11/2024 [...] Signed Date: 08/11/2024 13:07 ET Workstation ID: [id number] Transcribed By: Self Edit Transcribed Date: 08/11/2024 13:06 ET Rafiq LONDONO IMG XR PROCEDURES Final Result from Last 3 Months Insurance [facility] PLANS
[2024-09-13 22:01] LABS: Bacterial Vaginosis PCR POSITIVE (Negative); Candida Group PCR NOT DETECTED (Not Detect); Candida glab krusei PCR NOT DETECTED (Not Detect); Trichomonas vaginalis PCR NOT DETECTED (Not Detect)
[2024-09-13 23:52] LABS: CT PCR NOT DETECTED (Not Detect.); NG PCR NOT DETECTED (Not Detect.)
== END 2024-09-13 08:55 | disposition home or self-care (01) ==
LOC: HO.LNP 08:54
PROVIDERS: PCP Physician Assistant; Visit Provider Obstetrics & Gynecology
DX: Z09 Encounter for follow-up examination after completed treatment for conditions other than malignant neoplasm (principal); A74.9 Chlamydial infection, unspecified; Z79.2 Long term (current) use of antibiotics
CPT/HCPCS: 81515; 87491; 87591; 99212

== ENCOUNTER 2024-09-15 13:11 | Outpatient (REF) | payer OTHER, SELFPAY ==
--- OUTSIDE RECORDS SUMMARY | 2024-09-15 15:14 | XMS_ITS | Clinical Summary ---
Author Organization [facility] 230 [facility] lding Address [address] [place] [address] Phone Care Team Providers Care Shoe Puller Name Role Phone Unavailable Primary Care Provider Unavailabl e Encounters Date Type Department Care Team Description 08/11/2024 9:30 AM EST - 08/11/2024 11:59 PM EST [facility] [address] [place] [address] Pain in left wrist Discharge [...] Signed Date: 08/11/2024 13:07 ET Workstation ID: [id number] Transcribed By: Self Edit Transcribed Date: 08/11/2024 [...] Signed Date: 08/11/2024 13:07 ET Workstation ID: [id number] Transcribed By: Self Edit Transcribed Date: 08/11/2024 13:06 ET Rafiq LONDONO IMG XR PROCEDURES Final Result from Last [address] [place] [address] [address] [place] [address] PLANS
[2024-09-18 08:47] LABS: HBsAGNum1 0.42 S/CO (0.00-0.99); HIV AB/AG Nonreactive (Nonreactive); HIV Num 1 0.06 S/CO (0.00-0.99); Hepatitis B Surface Antigen Negative (Negative); ~HepC Num1 0.14 S/CO (0.00-0.79); ~Hepatitis C Antibody Nonreactive (Nonreactive)
[2024-09-18 09:21] LABS: Syphilis Screen Nonreactive (Nonreactive)
== END 2024-09-15 13:12 | disposition home or self-care (01) ==
LOC: HO.LAB 13:11
PROVIDERS: Visit Provider Obstetrics & Gynecology
DX: Z20.2 Contact with and (suspected) exposure to infections with a predominantly sexual mode of transmission (principal)
CPT/HCPCS: 36415; 86780; 86803; 87340; 87389

== ENCOUNTER 2024-11-15 10:31 | Outpatient (AMB) | payer OTHER, SELFPAY ==
[2024-11-15 10:39] VITALS: BMI 44.5
--- NOTE | 2024-11-15 10:39 | A.OFFVIS_ITS ---
Vital Signs 11/15/24 10:39 Height 5 ft 7 in Weight 284 lb BMI 44.5 Intake Visit Reasons: EMB Golf Cart Repairer Required: No Information Interpreted: non-clinical & clinical Sales Operations Associate: Sales Operations Associate Present (Claudia MORALES) Accompanied by: Self / Same As Patient Allergies caffeine Adverse Reaction (Verified 11/15/24 10:39) Nausea and Vomiting bee sting Allergy (Severe, Uncoded 11/15/24 10:39) Anaphylaxis Is last menstrual period known: No (mirena) HPI Comments Details: Presenting for repeat EMB with no complaint no vaginal bleeding or any other concerns. Focal crowding on D&C pathology in 10/09 Resolved on Mirena IUD in 02/08 06/11 EMB inactive endometrium 09/12 Mirena IUD malpositioned, replaced PFSH Medical History Cervicalgia LINUS (generalized anxiety disorder) Hypothyroidism MDD (major depressive disorder), recurrent episode, moderate Left ovarian cyst Hypothyroid Surgical History History of dental surgery History of removal of ovarian cyst Family History Mother Mental health disorder Sister Mental health disorder Social History Household Members: Spouse Housing: Apartment Alcohol intake: current Alcohol intake frequency: holidays/special occasions only Patient Tobacco Use Status: Former Tobacco user e-Cigarette/Vaping Use: Never Used Second Hand Smoke Exposure: No Substance Use Type: Marijuana service: No Current occupational status: employed 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 [employer] Gender identity: Female Cognitive needs: No Hearing needs: No Vision needs: No Female Reproductive History Menstrual Age of Menarche: 16 Review of Systems Const All systems reviewed & are unremarkable except as noted in HPI and below Reports as per HPI and Reports no additional complaints GI Reports no additional complaints Reports no additional complaints Physical Exam Vital Signs: BMI result Body Mass Index 44.5 Office Procedures Endometrial Biopsy Details: The patient was counseled regarding the indication and benefits of endometrial sampling to rule out endometrial pathology including not limited to endometrial hyperplasia or endometrial cancer and others; The alternatives (Either do nothing vs. hysteroscopy D&C) & the risks were discussed with the patient including but not limited: pain, uterine perforation, bleeding, infection, possible injury to bladder, bowel, ureter, possible need for blood transfusion with all its possible risks. The patient verbalized understanding all questions answered and signed consent. Urine test done in the office was negative The patient was placed into the dorsal lithotomy position; a speculum was inserted in the vagina. Using aseptic technique for the procedure, the cervix was cleansed with Betadine. The anterior lip of the cervix was grasped with a single tooth tenaculum. The uterus was sounded to 7 cm with a 4 mm Pipelle was used. Tissues samples were obtained and placed in formalin, in a patient labeled container and sent to the pathology department. At the end of the procedure, there was minimal bleeding noted The patient tolerated the procedure well and was discharged in good condition with the following instructions: Nothing in the vagina until the bleeding stops. No sex until the bleeding stops, to call if any of the following occurs: fever (>100.4), flu-like symptoms, abdominal pain, heavy bleeding, four smelling vaginal discharge. The patient was instructed to schedule a Follow up appointment in 2 weeks to discuss pathology results of the biopsy and treatment options. This note was generated with a voice recognition program. Some errors may have been overlooked during the review of this note. Sometimes these errors may affect the content or meaning of a given sentence. [address]3764-Slazoedybhi Biopsy Results AMB Test Urine AMB Test Urine Negative Last Edit by Claudia Barrera CMA on 10:44 Assessment & Plan Assessment & Plan (1) Abnormal uterine bleeding (AUB): Comment: Focal crowding on D&C pathology in 10/09 Resolved on Mirena IUD in 02/08 06/11 EMB inactive endometrium Code(s): N93.9 - Abnormal uterine and vaginal bleeding, unspecified Category: Medical Plan: EMB done, see procedure UPT done in the office was negative. Discussed with the patient the finding on physical exam, IUD string in place, the patient was reassured. Instructions given to patient to call in case of temperature above 100.4, severe cramping/pelvic pain, abnormal discharge or abnormal uterine bleeding or if she misses her menstrual cycle. Otherwise follow-up at her annual exam appointment. All questions answered, the patient verbalized understanding. Orders: Orders AMB HCG Urine Test Today Z32.02 - Encounter for test, result negative AMB Endometrial Biopsy Today N93.9 - Abnormal uterine and vaginal bleeding, unspecified Coding Level of Care Code Procedure Only Diagnoses Abnormal uterine bleeding (AUB) N93.9 CPT Codes Endometrial Biopsy - CPT: 66891-Czxlsvrbbtr Biopsy ([id number])
--- OUTSIDE RECORDS SUMMARY | 2024-11-15 11:53 | XMS_ITS | Clinical Summary ---
Author Organization [facility] 230 [facility] l[address] Address [address] [place] [address] Phone Care Team Providers Care Door Manager Name Role Phone Unavailable Primary Care Provider Unavailabl e Encounters Date Type Department Care Team Description 09/20/2024 12:15 PM EST - 09/20/2024 11:59 PM EST Hospital Encounter [facility] MRI [address] [place] [address] Pain in left wrist Discharge Disposition: Home [...] 5 season) 2024 06/06/2021, 05/09/2021 Influenza Vaccine (Season Ended) 2025 HIB Vaccines Aged Out No longer eligi [...] age to complete this topic Meningococcal B Vaccine Aged Out No l onger eligible based on patient's age to complete [...] Procedure Name Priority Date/Time Associated Diagnosis Comments MR WRIST WO CONTRAST LEFT Routine 09/20/2024 1:22 PM EST Pain in left wrist from Last 3 Months Results * MR Wrist wo Contrast Left (09/20/2024 1:22 PM EST) Anatomical Region Laterality Modality Upper Extremities, Wrist Left Magneti c Resonance 09/21/2024 1:17 PM EST Impressions 09/21/2024 1:48 PM EST No fracture or ligamentous injury. 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 extensor pollicis brevis tendinosis with longitudinal split tear. -------- FINAL REPORT -------- Dictated By: PAYTON SINGLETARY Dictated Date: 09/21/2024 13:17 ET Assigned Physician: PAYTON SINGLETARY Reviewed and Electronically Signed By: PAYTON SINGLETARY Signed Date: 09/21/2024 13:48 ET Workstation ID: [id number] Transcribed By: Self Edit Transcribed Date: 09/21/2024 13:17 ET Narrative 09/21/2024 1:48 PM EST PROCEDURE: Left wrist MRI INDICATION: Left wrist pain TECHNIQUE: Multiplanar, multisequence MRI of the left wrist Without contrast. COMPARISON: ??No priors available. FINDINGS: No fracture or suspicious marrow replacing lesion. ??Small degenerative subcortical cysts are seen throughout the carpus, most notable in the right atrium, capitate, and radial aspect of the lunate. No focal cartilage defects or significant joint effusion. Scapholunate and lunatotriquetral ligaments are intact. Triangular fibrocartilage complex is intact. ??No significant fluid in the distal radial ulnar joint. Extrinsic wrist ligaments are intact. Extensor carpi ulnaris and extensor pollicis brevis tendinosis. ??Longitudinal split tear of the extensor pollicis brevis around the radial styloid and distally. ??Flexor tendons are intact. Carpal tunnel is normal in morphology. ??Median and ulnar nerves are normal. No mass or periarticular fluid collection. ??Small fluid noted in the pisiform recess. Muscle bulk is normal.. Procedure Note Payton Singletary MD - 09/21/2024 PROCEDURE: Left wrist MRI INDICATION: Left wrist pain TECHNIQUE: Multiplanar, multisequence MRI of the left wrist Withoutcontrast. COMPARISON: No priors available. FINDINGS: No fracture or suspicious marrow replacing lesion. Small degenerativesubcortical cysts are seen throughout the carpus, most notable in theright atrium, capitate, and radial aspect of the lunate. No focal cartilage defects or significant joint effusion. Scapholunate and lunatotriquetral ligaments are intact. Triangular fibrocartilage complex is intact. No significant fluid in thedistal radial ulnar joint. Extrinsic wrist ligaments are intact. Extensor carpi ulnaris and extensor pollicis brevis tendinosis.Longitudinal split tear of the extensor pollicis brevis around the radialstyloid and distally. Flexor tendons are intact. Carpal tunnel is normal in morphology. Median and ulnar nerves arenormal. No mass or periarticular fluid collection. Small fluid noted in thepisiform recess. Muscle bulk is normal.. IMPRESSION: No fracture or ligamentous injury. 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 extensor pollicis brevis tendinosis with longitudinal split tear. -------- FINAL REPORT -------- Dictated By: PAYTON SINGLETARY Dictated Date: 09/21/2024 13:17 ET Assigned Physician: PAYTON SINGLETARY Reviewed and Electronically Signed By: PAYTON SINGLETARY Signed Date: 09/21/2024 13:48 ET Workstation ID: [id number] Transcribed By: Self Edit Transcribed Date: 09/21/2024 13:17 ET Rafiq LONDONO IMG MRI PROCEDURES Final Resul t from Last 3 Months Insurance [facility] PUBLIC PLANS
== END 2024-11-15 12:53 | disposition home or self-care (01) ==
LOC: HO.HWS 10:31
PROVIDERS: PCP Physician Assistant; Visit Provider Obstetrics & Gynecology
DX: N93.9 Abnormal uterine and vaginal bleeding, unspecified (principal); Z32.02 Encounter for pregnancy test, result negative
CPT/HCPCS: 58100

== ENCOUNTER 2024-11-15 10:31 | Outpatient (REF) | payer OTHER, SELFPAY ==
--- OUTSIDE RECORDS SUMMARY | 2024-11-15 12:33 | XMS_ITS | Clinical Summary ---
Author Organization [facility] 230 [facility] l[address] Address [address] [place] [address] Phone Care Team Providers Care Hogshead Cooper Name Role Phone Unavailable Primary Care Provider Unavailabl e Encounters Date Type Department Care Team Description 09/20/2024 12:15 PM EST - 09/20/2024 11:59 PM EST Hospital Encounter [facility] MRI [address] [place] [address] Pain in left wrist Discharge [...] Signed Date: 09/21/2024 13:48 ET Workstation ID: [id number] Transcribed By: Self Edit Transcribed Date: 09/21/2024 [...] Signed Date: 09/21/2024 13:48 ET Workstation ID: [id number] Transcribed By: Self Edit Transcribed Date: 09/21/2024 13:17 ET Rafiq LONDONO IMG MRI PROCEDURES Final Resul t from Last 3 Months Insurance [facility] PUBLIC PLANS
== END 2024-11-15 10:32 | disposition home or self-care (01) ==
LOC: HO.LNP 10:31
PROVIDERS: PCP Physician Assistant; Visit Provider Obstetrics & Gynecology
DX: N93.9 Abnormal uterine and vaginal bleeding, unspecified (principal); Z32.02 Encounter for pregnancy test, result negative
CPT/HCPCS: 58100; 81025; 88305

== ENCOUNTER → 2024-12-14 07:47 | Outpatient (BNVA) | payer OTHER, SELFPAY | PROVIDERS: PCP Physician Assistant; Visit Provider Obstetrics & Gynecology ==